=== PATIENT | female | born 1935 | race Caucasian/White ===

== ENCOUNTER 2016-12-31 07:49 | Inpatient (IN) ==
--- NOTE | 2016-12-31 08:04 | EKG Report ---
Stationary ECG Study [facility] ER Test Date: 12/31/2016 7:59:53 AM Pat Name: TAVON MORGAN Department: Room: Gender: F Auto Detailer: : 1935 Requested by: London Staples Order Number: [id number] Reading MD: YARITZA CORDOVA Intervals [place] Rate: 68 P: 52 CT: 181 QRS: 30 QRSD: 83 T: 30 QT: 398 QTc: 416 Interpretive Statements SINUS RHYTHM SEPTAL MYOCARDIAL INFARCTION, OLD Electronically Signed On 12-31-16 11:49:32 CDT by YARITZA CORDOVA [id number]
[2016-12-31] MEDS ORDERED: ASPIRIN 325 MG TABLET PO STA (08:34)
[2016-12-31 08:39] LABS: Basophils # 0.1 10*3/uL (0.0-0.2); Basophils % 0.6 % (0.0-0.8); Eosinophils # 0.3 10*3/uL (0.0-0.87); Eosinophils % 2.6 % (0.00-10.9); Hematocrit 37.1 VOL% (35.7-47.0); Hemoglobin 11.9 GM/DL (12.0-16.0); Immature Granulocytes % 0.6 %; Immature Granulocytes Absolute 0.06 #; Lymphocytes # 1.4 10*3/uL (1.4-4.0); Lymphocytes % 13.2 % (21.3-54.2); Mean Corpuscular HGB Conc 32.1 GM/DL (32-36); Mean Corpuscular Hemoglobin 31 PG (27-34); Mean Corpuscular Volume 96.9 FL (87-102); Mean Platelet Volume 8.8 FL (9.6-12.0); Monocytes # 0.5 10*3/uL (0.11-0.8); Monocytes % 4.8 % (1.7-12.7); Neutrophils # 8.4 10*3/uL (1.4-7.4); Neutrophils % 78.2 % (38.7-73.9); Platelet Count 300 T/CUMM (130-400); Red Blood Count 3.83 MC/CUMM (3.8-5.5); Red Cell Distribution Width 13.4 % (9.3-17.3); White Blood Count 10.8 T/CUMM (4-12)
--- NOTE | 2016-12-31 08:42 | Emergency Department Note ---
Marbella Strickland Hilary, am scribing for, and in the presence of, London Back MD 08: 35. Nazanin Strickland James D, MD, personally performed the services described in this documentation, ascribed by Subha Tyson in my presence, and it is both accurate and complete 841 . Arrival - Arrival Chief Complaint: Chest Pain ED Nursing Triage Note: pt has pain in chest and between shoulder blades. onset last night. chest pain is worse with touching chest Mode of Arrival: Stretcher Limitations: No Limitations Source: Patient, Family (daughter), RN Notes Reviewed - History of Present Illness HPI Narrative: Pt is a 81 y/o white female brought to the ED via EMS with c/o chest pain which onset last night. Pt confirms cough, chest pain and diaphoresis. She states her chest pain hurts from her throat down to her chest and then from her head all the way down her back. Pt has a PMHx of COPD and HTN. No other complaints or problems stated in the ED. Onset (ago): hour(s) Consistency: constant Severity: mild Severity scale (1-10): 1 Quality: sharp Allergies/Adverse Reactions: Allergies Allergy/AdvReac Type Severity Reaction Status Date / Time Penicillins AdvReac Intermediate Anxiety Verified 10/05/14 11:37 steriods AdvReac Intermediate Cramping Uncoded 10/05/14 11:37 of the Muscles Home Medications: Home Medications Medication Instructions Recorded Confirmed Type Doxepin [SINEquan] 50 mg PO BEDTIME 10/05/14 12/31/16 History amLODIPine [Norvasc] 2.5 mg PO DAILY 07/14/15 12/31/16 History Aspirin [Ecotrin] 81 mg PO DAILY #30 07/20/15 12/31/16 Rx clonazePAM [Klonopin] 1 mg PO BID #60 07/20/15 12/31/16 Rx Review of System - Review of System 12 point system: reviewed and no additional remarkable complaints except as stated - Review of System Constitutional: Absent: fever Cardiovascular: Present: chest pain. Absent: edema Medical,Surgical,& Family Hx - Medical History Cardio: History of: Hypertension Respiratory: History of: COPD - Social History Smoking Status: Never smoker Frequency of Alcohol Use: None Type of Drug Use: None Marital Status: Single Lives With:: Alone Functional capacity: independent ambulation Exam Physical Examination: GENERAL: This is a thin white female in no apparent distress. VITAL SIGNS: Temperature: 96.1 Pulse: 75 Respiratory: 18 Blood Pressure: 139 /71 O2Sat: 97 HEENT: Head is normocephalic and atraumatic. Pupils are equally round and reactive to light. Extraocular movement are intact. Oropharynx is benign with moist mucous membranes. NECK: Neck is soft and supple without tenderness. There are no masses. There is no lymphadenopathy. LUNGS: Lungs have rhonchi in all lung olea. Chest rises symmetrically. There is no chest wall tenderness. CV: Heart is regular rate and rhythm without murmurs, rubs, or gallops. ABDOMEN: Abdomen is soft, non-tender to palpation. There are no abnormal masses palpated. There is no organomegaly. Bowel sounds are present and active. SKIN: Skin is warm and dry. No rash. EXTREMITIES: Patient has full range of motion without tenderness. There is no pedal edema. NEUROLOGIC: Awake, alert, and oriented x4. Cranial nerves II through XII are grossly intact. There are no motorsensory deficits. PSYCHIATRIC: Normal affect. Normal mood. Vital Signs: Vital Signs Temperature 96.1 F L 12/31/16 07:55 Pulse Rate 75 12/31/16 07:55 Respiratory Rate 18 12/31/16 08:01 Blood Pressure 139/71 12/31/16 07:55 O2 Sat by Pulse Oximetry 97 12/31/16 07:55 Course Course Narrative: Patient was given aspirin, Lovenox, and Cipro in the emergency department. - Consultations Consultation #1: Discussed with Dr. Goldstein. Patient will be admitted to the cardiology service. Time: 10:33 Results - Labs CBC & BMP: 12/31/16 08:21 12/31/16 08:32 Lab Results: I have reviewed the patients labs Labs: Laboratory Tests 12/31/16 08:21 WBC 10.8 RBC 3.83 Hgb 11.9 L Hct 37.1 Plt Count 300 MPV 8.8 L Neut % (Auto) 78.2 H Lymph % (Auto) 13.2 L Neut # (Auto) 8.4 H Laboratory Tests 12/31/16 08:32 Troponin I 2.600 H Laboratory Tests 12/31/16 08:32 Sodium 143 Potassium 3.7 Chloride 106 Carbon Dioxide 32 CK-MB (CK-2) 10.4 H Troponin I 2.600 H Albumin 3.1 L Globulin 4.0 H Albumin/Globulin Ratio 0.7 L Laboratory Tests 12/31/16 09:14 Lactic Acid 1.2 Laboratory Tests 12/31/16 Unknown B-Natriuretic Peptide 134 H Laboratory Tests 12/31/16 09:14 Urine pH 7.0 Ur Specific [place] 1.005 Urine Urobilinogen < 2.0 H Urine Leukocytes Large H Urine RBC 2 Urine WBC 57 - EKG EKG results: interpreted by ERMD - Impressions EKG: Normal sinus rhythm with a rate of 68, normal ST-T waves, normal axis - Diagnostic Findings Procedure: Chest x-ray: image reviewed by me, report reviewed by me (Increased pulmonary markings bilaterally and a groundglass appearance. No cardiomegaly. Reduced atelectasis/infiltration/edema at the right lung base. Similar progressive findings at the left lung base. Underlying chronic scarring. ) Disposition Clinical Impression: Chest pain, UTI (urinary tract infection), NSTEMI (non-ST elevated myocardial infarction) Case discussed with: patient Disposition: Still a Patient Condition: Stable Time of Disposition: 11:01
[2016-12-31] MEDS ORDERED: ASPIRIN 325 MG TABLET ONE (09:07)
[2016-12-31 09:12] LABS: Alanine Aminotransferase 19 U/L (13-56); Albumin 3.1 G/DL (3.4-5.0); Alkaline Phosphatase 89 U/L (45-117); Aspartate Amino Transferase 29 U/L (0-37); Bilirubin,Total < 0.39 MG/DL (0.2-1.0); Blood Urea Nitrogen 10 MG/DL (7-18); CKMB % 10.6 %; Calcium 8.9 MG/DL (8.5-10.1); Glucose 105 MG/DL (74-106); Magnesium 2.3 MG/DL (1.8-2.4); Potassium 3.7 MMOL/L (3.5-5.1); Sodium 143 MMOL/L (136-145); Total Protein 7.1 G/DL (6.4-8.3)
[2016-12-31] MEDS ORDERED: ENOXAPARIN 60 MG/0.6 ML SYRINGE SUBCUT STA (09:30)
[2016-12-31] MEDS ORDERED: ENOXAPARIN 60 MG/0.6 ML SYRINGE ONE (09:45)
--- NOTE | 2016-12-31 10:00 | XRay Report ---
Portable chest Date: 12/31/2016 Clinical history: Chest pain Comparison: 07/20/2015 Technique: Portable AP sitting chest Findings: The heart is minimally enlarged with calcification in the aortic knob. Chronic scarring in the lungs with decreased parenchymal findings the right lung base with minimally progressive parenchymal findings at the left lung base. Osteopenia with degenerative changes. Stable mediastinum. Impression: Reduced atelectasis/infiltration/edema at the right lung base. Similar progressive findings at the left lung base. Underlying chronic scarring. PROCEDURE INTERPRETED AT [facility] DEPARTMENT OF RADIOLOGY Final Report Signed by: Dr. Shanta Haider
[2016-12-31 10:06] LABS: Apearance,Urine Slightly Hazy (Clear); Bacteria,Urine Occasional /HPF (Few); Bilirubin,Urine Negative (Negative); Blood, Urine Negative (Negative); Glucose,Urine (UA) Negative (Negative); Ketones,Urine Negative (Negative); Nitrite,Urine Negative (Negative); Protein,Urine Negative; RBC,Urine 2 /HPF (0-4); Squamous Epithelial Cell,Urine Occasional /HPF (0-10); Urine Color Yellow (Yellow); Urine Specific Gravity 1.005 (1.001-1.035); Urine Urobilinogen < 2.0 EU/DL (0.2-1.0); WBC,Urine 57 /HPF (0-6)
[2016-12-31] MEDS ORDERED: NITROGLYCERIN 2% OINT 1 INCH/GM PACK TOP STA (10:32)
[2016-12-31] MEDS ORDERED: CIPROFLOXACIN INJ 400 MG in PREMIX 1 EACH IV STA (10:32)
[2016-12-31] MEDS ORDERED: CIPROFLOXACIN 400 MG/200 ML PREMIX IV ONE (10:41)
[2016-12-31] MEDS ORDERED: NITROGLYCERIN 2% OINT 1 INCH/GM PACK TOP ONE (10:41)
[2016-12-31] MEDS ORDERED: ONDANSETRON 4 MG/2 ML VIAL IV PRN (11:57)
[2016-12-31] MEDS ORDERED: ACETAMINOPHEN 325 MG TABLET PO PRN (11:57)
[2016-12-31] MEDS ORDERED: POTASSIUM CHLORIDE 20 MEQ TABLET PO PRN (11:57)
[2016-12-31] MEDS ORDERED: MAGNESIUM HYDROXIDE SUSP 30 ML UDCUP PO PRN (11:57)
[2016-12-31] MEDS ORDERED: MAGNESIUM SULF RIDER 2 GM in PREMIX 1 EACH IV PRN (11:57)
[2016-12-31] MEDS ORDERED: SODIUM CHLORIDE 0.45% 1,000 ML IV SCH (12:00)
--- NOTE | 2016-12-31 12:00 | Cardiology History & Physical ---
Assessment and Plan - Time spent with patient Time spent with patient: Greater than 30 minutes (due to assessment, plan, and documentation) (1) Chest pain Status: Acute Assessment and plan: See plan of care listed below. Current Visit: Yes (2) Hypertension Status: Chronic Assessment and plan: See plan of care listed below. Current Visit: Yes (3) COPD (chronic obstructive pulmonary disease) Status: Chronic Assessment and plan: See plan of care listed below. Current Visit: Yes (4) Abnormal chest x-ray Status: Chronic Assessment and plan: See plan of care listed below. Current Visit: Yes (5) Elevated troponin Status: Acute Assessment and plan: See plan of care listed below. Current Visit: Yes (6) Family history of coronary artery disease Status: Chronic Assessment and plan: See plan of care listed below. Current Visit: Yes (7) UTI (urinary tract infection) Status: Acute Assessment and plan: See plan of care listed below. Current Visit: Yes History of Present Illness Chief complaint: chest pain History of present illness: It Application Development Manager: new to Dr. Goldstein PCP/Patrol Deputy Sheriff: Dr. Anaya Ms. Rojas is being seen in the emergency room, #12. Ms. Rojas is a 81 year old female with a history of COPD, hypertension , osteoporosis, and history of abnormal chest x-ray and abnormal CT scan of the chest. She is followed by Dr. Anaya. She has abnormal CT/CXR results consisting of interstitial scarring in the RML and lingula which have remained stable for years on her routine chest x-ray. Risk factors are significant for: age, sedentary lifestyle, hypertension, and family history of CAD. She is a lifetime nonsmoker. She lives alone with her 2 sons living within 5-10 minutes of her. Ms. Rojas presents to the emergency room this morning with complaints of chest pain that began last night; she is unsure of the time. She is a poor historian. The pain waxed and waned all night before she called her family this morning around 0600. She reports it was midsternal in nature and hurt from her throat down to her upper abdomen and in her back between her shoulder blades. She describes it as being sharp in quality and severe. She can identify no aggravating or alleviating factors. She had associated symptoms of diaphoresis and shortness of breath, noting that she felt as if she couldn't breathe. She denies dizziness, lightheadedness, nausea, vomiting, or palpitations. She has a frequent chronic cough with sputum production that she states has been darker tinged recently. She states she is normally very active in her yard and flower beds but has just not felt well recently and hasn't been outside as much as she usually is although she denies exertional dyspnea or chest discomfort. Upon arrival to our facility, her troponin was 2.6 with CK-MB 10.4 and CPK 98. Her creatinine is 0.9, potassium 3.7, sodium 143, hemoglobin 11.9, hematocrit 37.1, white blood cell count 10.8. She has noted to have a urinary tract infection and has been started on IV Cipro. She also reports that 10-15 years ago, she had an allergic reaction to IVP dye but is unsure what type of reaction she had. EKG is unremarkable and shows sinus rhythm. ASSESSMENT/PLAN: 1. CHEST PAIN - Patient presents with symptoms suspicious for angina and elevated troponin. I have discussed her case with Dr. Goldstein and she will be admitted to cardiology service for further evaluation. She has never had a a heart catheterization in the past. We will hold her NPO in anticipation of probable cath to further define her coronary anatomy. We will continue to cycle cardiac biomarkers and EKGs and follow trend. She has received aspirin, lovenox , and nitroglycerin in the emergency room. We will continue aspirin 81mg po daily. She has a history of chronic lung issues, therefore, we will try to use a more cardioselective beta marta such as bystolic with her. We will obtain an echocardiogram and check lipid panel. We will check D-Dimer to rule out PE. 2. HYPERTENSION - Currently well controlled. Will continue to monitor and adjust accordingly. 3. COPD - Routinely followed by Dr. Anaya. 4. HISTORY OF ABNORMAL CHEST XRAY- Revealed increased pulmonary markings bilaterally and a groundglass appearance. No cardiomegaly. Reduced atelectasis/ infiltration/edema at the right lung base. Similar progressive findings at the left lung base. Underlying chronic scarring. 5. ELEVATED TROPONIN - Currently 2.6. Will continue to cycle cardiac biomarkers and follow trend. 6. FAMILY HISTORY OF CAD - Patient states most everyone on her mom's side of the family has had heart disease. 7. UTI - She is receiving IV antibiotics in the ER. We will continue with PO tomorrow. Home Medications Medication Instructions Recorded Confirmed Type Doxepin [SINEquan] 50 mg PO BEDTIME 10/05/14 07/14/15 History Ibuprofen Tab [Motrin Tab] 400 mg PO TID PRN #21 tablet 10/05/14 07/14/15 Rx amLODIPine [Norvasc] 2.5 mg PO DAILY 07/14/15 07/14/15 History Aspirin [Ecotrin] 81 mg PO DAILY #30 07/20/15 07/14/15 Rx Benzonatate [Tessalon] 100 mg PO TID PRN #30 07/20/15 07/14/15 Rx Clindamycin Cap [Cleocin Cap] 150 mg PO TID #21 07/20/15 07/14/15 Rx Montelukast Tab [Singulair Tab] 10 mg PO DAILY #30 07/20/15 07/14/15 Rx Theophylline Liquid [Elixophyllin] 100 mg PO Q12H #1200 mls 07/20/15 Rx clonazePAM [Klonopin] 1 mg PO BID #60 07/20/15 07/14/15 Rx Allergies Allergy/AdvReac Type Severity Reaction Status Date / Time Penicillins AdvReac Intermediate Anxiety Verified 10/05/14 11:37 steriods AdvReac Intermediate Cramping Uncoded 10/05/14 11:37 of the Muscles Review of systems: - Constitutional: Present: fatigue, As per HPI. Absent: anorexia, chills, daytime sleepiness, excessive sweating, fever(s), frequent falls, headache(s), increased appetite, lethargy, malaise, night sweats, stops breathing during sleep, weakness, weight gain, weight loss. - EENT Eyes: Present: As per HPI. Absent: blurry vision, diplopia, loss of vision Ears: Present: As per HPI. Absent: decreased hearing, ear discharge, ear pain Nose, mouth and throat: Present: As per HPI. Absent: dysphagia, epistaxis, headache(s), hoarseness, lip swelling, nasal congestion, neck mass, neck pain, sinus pressure, sore throat, throat swelling, tongue swelling, vertigo - Cardiovascular: Present: chest pain at rest, dyspnea, diaphoresis, as per HPI. Absent: chest pain with activity, dyspnea on exertion, edema, claudication , radiating jaw, neck or arm pain, lightheadedness, orthopnea, palpitations, PND - Respiratory: Present: dyspnea, cough, as per HPI. Absent: dyspnea on exertion , hemoptysis, wheezing, snoring, pain on inspiration - Gastrointestinal: Present: As per HPI. Absent: abdominal pain, bloating, change in bowel habits, constipation, diarrhea, heartburn, hematemesis, hematochezia, loose stools, melena, nausea, vomiting - Genitourinary: Present: As per HPI. Absent: difficulty urinating, dysuria, flank pain, hematuria, nocturia, urinary frequency, urinary incontinence - Musculoskeletal: Present: back pain, As per HPI. Absent: arthralgias, joint swelling, limited range of motion, muscle cramps, muscle weakness, myalgias - Neurological: Present: As per HPI. Absent: abnormal gait, abnormal speech, behavioral changes, confusion, convulsions, disequilibrium, dizziness, focal weakness, frequent falls, headache(s), memory loss, numbness, paresthesias, radicular pain, syncope, tremor(s) - Psychiatric: Present: As per HPI. Absent: anxiety, confusion, depression, panic attacks - Endocrine: Present: fatigue, As per HPI. Absent: cold intolerance, heat intolerance, polydipsia, polyphagia - Hematologic/Lymphatic: Present: As per HPI. Absent: easy bleeding, easy bruising, lymphadenopathy Medical,Surgical,& Family Hx - Medical History Cardio: History of: Hypertension Psychological: History of: Depression Respiratory: History of: Bronchitis, COPD, Pneumonia, Respiratory Problems ( chronic abnormal CT/CXR) Musculoskeletal: History of: Degenerative Disk Disease - Surgical History Reproductive Surgeries: Surgical HX of;: Hysterectomy - Family History Family History: Reports;: Family Cancer, Family Diabetes, Family Heart Disease - Social History Smoking Status: Former smoker (smoked for approximately 3 years and stopped smoking over 40 years ago.) Frequency of Alcohol Use: None Type of Drug Use: None Marital Status: Lives With:: Alone Functional capacity: independent ambulation Cardiology Physical Exam - Constitutional Vitals: Vital Signs Temp Pulse Resp BP Pulse Ox 96.1 F L 75 18 139/71 97 12/31/16 07:55 12/31/16 07:55 12/31/16 08:01 12/31/16 07:55 12/31/16 07:55 Intake and Output 12/30/16 12/31/16 12/31/16 22:59 06:59 14:59 Other: Weight 130 lb Patient Weight 01/01/17 06:59 Weight 130 lb Exam: General appearance: Pleasant and cooperative. no acute distress. Head exam: Present: normal inspection, normocephalic, atraumatic. Absent: hematoma, laceration Eye exam: Present: EOMI. Absent: conjunctival injection, nystagmus, periorbital swelling, scleral icterus, laceration to eyelids Pupils: Present: PERRL. Absent: constricted, dilated, fixed, irregular, unequal ENT exam: Present: normal exam, normal external ear exam Neck exam: Present: normal inspection. Absent: lymphadenopathy, meningismus, tenderness, thyromegaly Respiratory exam: Present: Coarse breath sounds with end expiratory wheezes noted posteriorly. Absent: accessory muscle use, chest wall tenderness. Cardiovascular exam: Present: regular rate and rhythm. Absent: gallop, JVD, rubs GI/Abdominal exam: Present: normal bowel sounds, soft. Absent: distended, firm , guarding, hernia, mass, tenderness, rebound. Extremities exam: Present: normal inspection, normal capillary refill. Upper extremity pulses 2+. Lower extremity pulses 2+. Absent: calf tenderness, edema Musculoskeletal: Present: No Fluid Collection, No Pain, Normal Range of Motion Back exam: Present: normal inspection. Absent: muscle spasm, vertebral tenderness Neurological exam: Present: alert, oriented X3, grossly intact without resting or essential tremor Psychiatric exam: Present: normal affect, normal mood Skin exam: Present: normal color, warm, dry, intact. Absent: cyanosis, diaphoretic, rash, urticaria Result/EKG - Labs CBC & BMP: 12/31/16 08:21 12/31/16 08:32 Lab Results: I have reviewed the past 24 hour labs Labs: Laboratory Results - last 24 hr 12/31/16 12/31/16 12/31/16 08:21 08:32 09:14 WBC 10.8 RBC 3.83 Hgb 11.9 L Hct 37.1 MCV 96.9 MCH 31 MCHC 32.1 RDW 13.4 Plt Count 300 MPV 8.8 L Neut % (Auto) 78.2 H Lymph % (Auto) 13.2 L [place] % (Auto) 4.8 Eos % (Auto) 2.6 Baso % (Auto) 0.6 Neut # (Auto) 8.4 H Lymph # (Auto) 1.4 [place] # (Auto) 0.5 Eos # (Auto) 0.3 Baso # (Auto) 0.1 Immature Gran % 0.6 Nucleated RBC % 0.0 Immature Gran # 0.06 Nucleated RBCs # 0.00 Immature Plt Fraction 0.0 Sodium 143 Potassium 3.7 Chloride 106 Carbon Dioxide 32 Anion Gap 8.7 BUN 10 Creatinine 0.90 GFR Calculation 56 BUN/Creatinine Ratio 11.00 Glucose 105 Calculated Osmolality 283.0 Lactic Acid Calcium 8.9 Magnesium 2.3 Total Bilirubin < 0.39 AST 29 ALT 19 Alkaline Phosphatase 89 Total Creatine Kinase 98 CK-MB (CK-2) 10.4 H CK and CKMB Interp 10.6 Troponin I 2.600 H B-Natriuretic Peptide Total Protein 7.1 Albumin 3.1 L Globulin 4.0 H Albumin/Globulin Ratio 0.7 L Urine Color Yellow Urine Appearance Slightly hazy Urine pH 7.0 Ur Specific [place] 1.005 Urine Protein Negative Urine Glucose (UA) Negative Urine Ketones Negative Urine Blood Negative Urine Nitrate Negative Urine Bilirubin Negative Urine Urobilinogen < 2.0 H Urine Leukocytes Large H Urine RBC 2 Urine WBC 57 Ur Squamous Epith Cells Occasional Urine Bacteria Occasional Ur Culture Indicated? Results to follow 12/31/16 12/31/16 09:14 Unknown WBC RBC Hgb Hct MCV MCH MCHC RDW Plt Count MPV Neut % (Auto) Lymph % (Auto) [place] % (Auto) Eos % (Auto) Baso % (Auto) Neut # (Auto) Lymph # (Auto) [place] # (Auto) Eos # (Auto) Baso # (Auto) Immature Gran % Nucleated RBC % Immature Gran # Nucleated RBCs # Immature Plt Fraction Sodium Potassium Chloride Carbon Dioxide Anion Gap BUN Creatinine GFR Calculation BUN/Creatinine Ratio Glucose Calculated Osmolality Lactic Acid 1.2 Calcium Magnesium Total Bilirubin AST ALT Alkaline Phosphatase Total Creatine Kinase CK-MB (CK-2) CK and CKMB Interp Troponin I B-Natriuretic Peptide 134 H Total Protein Albumin Globulin Albumin/Globulin Ratio Urine Color Urine Appearance Urine pH Ur Specific Moore Urine Protein Urine Glucose (UA) Urine Ketones Urine Blood Urine Nitrate Urine Bilirubin Urine Urobilinogen Urine Leukocytes Urine RBC Urine WBC Ur Squamous Epith Cells Urine Bacteria Ur Culture Indicated? - EKG EKG results: interpreted by me, sinus rhythm
--- NOTE | 2016-12-31 12:25 | EKG Report ---
Stationary ECG Study [facility] ER Test Date: 12/31/2016 12:21:40 PM Pat Name: TAVON MORGAN Department: Room: 288 Gender: F Chief Counsel: : 1935 Requested by: London Staples Order Number: [id number] Reading MD: INEZ IQBAL Intervals [place] Rate: 70 P: 53 [place]: 183 QRS: 29 QRSD: 83 T: 35 QT: 394 QTc: 416 Interpretive Statements SINUS RHYTHM ANTEROSEPTAL MYOCARDIAL INFARCTION, OLD Electronically Signed On 12-31-16 13:48:43 CDT by INEZ IQBAL [id number]
[2016-12-31 13:05] LABS: CKMB % 16.5 %
[2016-12-31 13:06] LABS: Troponin I Only 14.5 NG/ML (0.00-0.045)
[2016-12-31] MEDS ORDERED: MORPHINE 2 MG/1 ML SYRINGE IV STA (13:10)
[2016-12-31] MEDS ORDERED: diphenhydrAMINE 50 MG/1 ML VIAL IV STA (13:10)
[2016-12-31] MEDS ORDERED: ONDANSETRON 4 MG/2 ML VIAL IV STA (13:10)
[2016-12-31] MEDS ORDERED: methylPREDNISolone SOD SUC 125 MG/2 ML VIAL IV STA (13:10)
[2016-12-31] MEDS ORDERED: diphenhydrAMINE 50 MG/1 ML VIAL ONE (13:13)
[2016-12-31] MEDS ORDERED: methylPREDNISolone SOD SUC 125 MG/2 ML VIAL ONE (13:13)
[2016-12-31] MEDS ORDERED: MORPHINE 2 MG/1 ML SYRINGE ONE (13:32)
[2016-12-31] MEDS ORDERED: ONDANSETRON 4 MG/2 ML VIAL ONE (13:32)
[2016-12-31] MEDS ORDERED: PANTOPRAZOLE 40 MG TABLET PO ONE (14:32)
[2016-12-31] MEDS: PANTOPRAZOLE 40 MG TABLET PO SCH (14:35)
[2016-12-31] MEDS ORDERED: HYDROmorphone 2 MG/1 ML VIAL ONE (15:07)
[2016-12-31] MEDS ORDERED: MIDAZOLAM 2 MG/2 ML VIAL ONE (15:07)
--- NOTE | 2016-12-31 15:27 | History and Physical Update ---
Sedation H&P Update - History and Physical H&P was reviewed, the patient examined and there: are no changes in the patients condition since last H&P was completed. - Physical Exam Mental Status: alert and oriented Heart: regular rate and rhythm Lung: clear to auscultation Abdomen: within normal limits Vitals: within normal limits - Sedation Plan for Sedation: moderate Patient Consent: Procedure disscussed with patient and patinet has consented., Risks and benefits were discussed with patient,including infection,, bleeding, injury to surrounding structures, seizure, temporary nerve, Patient understands and accepts potential risks/benefits and agrees to, proceed. ASA Class: III Airway Assessment: Class II: Soft palate, uvula, fauces visible
[2016-12-31] MEDS ORDERED: BIVALIRUDIN 250 MG VIAL IV ONE (16:07)
[2016-12-31] MEDS ORDERED: TICAGRELOR 90 MG TABLET ONE (16:45)
--- NOTE | 2016-12-31 17:24 | Cardiac Catheterization ---
Date of Procedure:: 12/31/16 Pre-op Diagnosis: Chest pain non-Q-wave IN Post-op diagnosis: same Procedure: Cardiac catheterization procedure note #1 left heart catheterization #2 selective coronary angiography #3 left ventriculography #4 successful OM1 stent #5 successful proximal LAD stent Devikaipaque was used for the procedure Description of procedure The patient had a non-Q-wave infarction with troponin level 14 and chest pain and nausea. Following sterile preparation draping of the right groin, local anesthesia was achieved by infiltration with 1% Xylocaine. Using a Cook needle the right femoral artery was cannulated and a #6 sheath was inserted. A 6 Salvadorean pigtail catheter was introduced and advanced retrograde across aortic valve into the left pedicle and the end-diastolic pressure was recorded. Left ventriculography was performed the CERVANTES projection using 24 cc of contrast. A pullback recording was made across aortic valve. The pigtail catheter change for a 6 Salvadorean left Luis catheter and left coronary angiography was performed in several CERVANTES and IVORIAN projections. The catheter was exchanged for a 6 Salvadorean right Amplatz catheter and right coronary angiography was performed in the IVORIAN projection only. The catheter change for a 6 Salvadorean left Luis 3.5 cm guiding catheter in the left main was recannulated. The patient was bolused with Angiomax and placed on infusion per protocol. A pro-water flex wire was used and carefully advanced the first OM branch into the distal vessel. Direct stenting was performed using a 2.5 x 8 mm Synergy drug eluting stent. The maximum inflation pressure was at 13 brandan for 30 seconds, creating a 2.80 mm lumen. Good result obtained. The wire was then redirected into the distal LAD and direct stenting was performed using a 2.75 x 12 mm Synergy drug-eluting stent. The maximum inflation pressure was at 13 brandan for 30 seconds, creating a 3.0 mm Lumen. The balloon was then withdrawn back to the guiding catheter leaving only the guidewire across the lesion. Repeat angiography again confirmed a widely patent vessel with mild to narrowing, no side branch occlusion and brisk runoff. The guiding catheter and sheath were then removed and the femoral arch Lima site was sealed percutaneously minx closure device with prompt cessation of bleeding and prompt return of femoral and foot pulses. The patient transferred back to telemetry in stable condition. Hemodynamic data Aortic pressure 133/67 mean of 102 left ventricle 133/20 Selective coronary angiography The left main trunk is patent and bifurcates. The LAD is a moderate-sized vessel that is tortuous and has a 80% proximal stenosis after the first septal and diagonal branch. Diagonal branch is patent. The circumflex system is tortuous and has a 90% proximal OM1 stenosis with clot. The dominant coronary artery remains patent with mild irregularities only. No right to left collaterals. Left ventriculography The ejection fraction is 30% with severe anteroapical and inferoapical hypokinesis. The basal segments are hyperdynamic. No evidence for mitral regurgitation under the conditions of the study. Conclusions #1 increased LVEDP 20 #2 ejection fraction 30% with severe anteroapical and inferoapical hypokinesis #3 no mitral regurgitation #4 no aortic valve gradient #5 left main trunk-patent #6 LAD 80% proximal after first septal and diagonal branch #7 diagonal branch-mild disease #8 circumflex system-tortuous with 90% proximal OM1 with clot #9 dominant right coronary-mild luminal irregularities only. No right to left collaterals demonstrated #10 successful stent OM1. A 90% stenosis was reduced to mild irregularities using a 2.5 x 8 mm synergy drug-eluting stent, postdilated to 13 brandan creating a 2.80 mm lumen. #11 successful proximal LAD stent. A 80% stenosis was reduced to mild irregularities using a 2.75 x 12 mm Synergy drug-coated stent, postdilated to 13 brandan for 30 seconds, creating a 3.0 mm lumen. Good angiographic results obtained. Disposition The patient presented with a non-Q-wave infarction involving a hazy obtuse marginal branch which was stented with a 2.5 x 8 mm Synergy drug-coated stent, postdilated 2.80 mm lumen. BETY grade III flow restored. The proximal LAD was also stented with a 2.75 x 12 mm Synergy drug eluting stent, postdilated 3.0 mm lumen. Good result obtained. She does have significant LV dysfunction in the setting of acute infarction with ejection fraction of 30%. Hopefully, some of this represents stunned myocardium and will improve on serial echo follow-up. She will continue aspirin Brilinta and statin therapy and a CPK troponin BMP CBC in a.m. has been ordered. Cine pictures were reviewed with the patient's son and [id number]. Implants: Successful stent OM1 2.5 x 8 Synergy drug-coated stent postdilated 2.80. Successful proximal LAD stent 2.75 x 12 mm synergy drug-eluting stent postdilated 3.0 mm. Good result obtained. Anesthesia: moderate conscious sedation Surgeon / Physician: Dalton Tadeo Estimated blood loss: minimal Specimens: none sent Condition: stable Disposition: floor - Medications / Follow-up
[2016-12-31] MEDS: clonazePAM 0.5 MG TABLET PO SCH ×2 (18:28→21:43)
[2016-12-31 18:42] LABS: CKMB % 16.8 %
[2016-12-31 18:45] LABS: Troponin I Only 14.2 NG/ML (0.00-0.045)
--- NOTE | 2016-12-31 19:36 | ECHO Report ---
Ya Rojas Exam Date: 12/31/2016 09:33 Referring Physician: Technologist: Mar Bishop RDCS Age: 81 Ht (in): 64 Wt (lb): 130 Gender: F Exam Location: [facility] Echo Indications: Shortness of breath, Cough, Chest pain, unspecified, Essential (primary) hypertension, COPD, Elevated troponin BP: 131 / 70 HR: 68 Rhythm: Sinus Technical Quality: Fair IMPRESSIONS Severe anteroapical and inferoapical hypokinesis.EF 30% The right ventricle is normal in size and function. The right atrium is mildly enlarged. Moderately increased left atrial size. Mildly thickened mitral valve. Trace mitral valve regurgitation. Aortic valve sclerosis. Trace aortic valve regurgitation. Severe tricuspid valve regurgitation. PAP 60 mmHG. Mild pulmonary valve regurgitation. Normal pericardium without effusion. Normal ascending aorta dimension. Grade II/IV diastolic dysfunction, moderately elevated filling pressures. MEASUREMENTS (Male / Female) Normal Values 2D ECHO LV Diastolic Diameter PLAX 4.4 cm 4.2 - 5.9 / 3.9 - 5.3 cm LV Systolic Diameter PLAX 2.7 cm LV Fractional Shortening PLAX 38.5 % IVS Diastolic Thickness 0.7 cm 0.6 - 1.0 / 0.6 - 0.9 cm LVPW Diastolic Thickness 0.7 cm 0.6 - 1.0 / 0.6 - 0.9 cm RV Internal Dim ED PLAX 2.3 cm Aortic Root Diameter 3.2 cm LA Systolic Diameter LX 3.3 cm 3.0 - 4.0 / 2.7 - 3.8 cm DOPPLER TR Peak Velocity 347.0 cm/s TR Peak Gradient 48.2 mmHg FINDINGS Left Ventricle .Severe anteroapical and inferoapical hypokinesis. EF 30 %. Grade II/IV diastolic dysfunction, moderately elevated filling pressures. Right Ventricle The right ventricle is normal in size and function. Right Atrium The right atrium is mildly enlarged. Left Atrium Moderately increased left atrial size. Mitral Valve Mildly thickened mitral valve. Trace mitral valve regurgitation. . Aortic Valve Aortic valve sclerosis. Trace aortic valve regurgitation. Tricuspid Valve Morphologically normal tricuspid valve. Severe tricuspid valve regurgitation. PAP 60 mmHG. Pulmonic Valve Morphologically normal pulmonic valve. Mild pulmonary valve regurgitation. Pericardium Normal pericardium without effusion. Aorta Normal ascending aorta dimension. Hima Tadeo (Electronically Signed) Final Date: 31 December 2016 19:35
[2016-12-31] MEDS ORDERED: clonazePAM 0.5 MG TABLET PO SCH (21:00)
[2016-12-31] MEDS: DOXEPIN 25 MG CAPSULE PO SCH (21:42)
[2016-12-31] MEDS: ATORVASTATIN 40 MG TABLET PO SCH (21:43)
[2016-12-31] MEDS: TICAGRELOR 90 MG TABLET PO SCH (21:43)
[2016-12-31 22:08] LABS: CKMB % 15.8 %
[2016-12-31 22:13] LABS: Troponin I Only 11.5 NG/ML (0.00-0.045)
[2016-12-31] MEDS: BISACODYL 5 MG TABLET PO PRN (23:58)
[2017-01-01 05:10] LABS: Basophils % 0.1 % (0.0-0.8); Hematocrit 33.6 VOL% (35.7-47.0); Hemoglobin 10.9 GM/DL (12.0-16.0); Immature Granulocytes % 0.5 %; Immature Granulocytes Absolute 0.07 #; Lymphocytes # 0.9 10*3/uL (1.4-4.0); Lymphocytes % 6.5 % (21.3-54.2); Mean Corpuscular HGB Conc 32.4 GM/DL (32-36); Mean Corpuscular Hemoglobin 31 PG (27-34); Mean Corpuscular Volume 96.6 FL (87-102); Mean Platelet Volume 9.2 FL (9.6-12.0); Monocytes # 0.7 10*3/uL (0.11-0.8); Monocytes % 5.1 % (1.7-12.7); Neutrophils # 11.7 10*3/uL (1.4-7.4); Neutrophils % 87.8 % (38.7-73.9); Platelet Count 314 T/CUMM (130-400); Red Blood Count 3.48 MC/CUMM (3.8-5.5); Red Cell Distribution Width 13.4 % (9.3-17.3); White Blood Count 13.4 T/CUMM (4-12)
[2017-01-01 05:46] LABS: Calcium 8.8 MG/DL (8.5-10.1); Osmolality,Calculated 274.7 MOS/KG (273-304); Potassium 4.7 MMOL/L (3.5-5.1)
[2017-01-01 05:48] LABS: CKMB % 17.4 %; Troponin I Only 9.22 NG/ML (0.00-0.045)
[2017-01-01 06:21] LABS: Magnesium 2.1 MG/DL (1.8-2.4); Risk Ratio 3.27; VLDL CHOLESTEROL 11.8 MG/DL
--- NOTE | 2017-01-01 07:15 | EKG Report ---
Stationary ECG Study [facility] Test Date: 01/01/2017 7:16:24 AM Pat Name: TAVON MORGAN Department: Room: 288 Gender: F Associate Embalmer/Funeral Director: JEFF : 1935 Requested by: Inez Tadeo Order Number: [id number] Reading MD: INEZ TADEO Intervals [place] Rate: 75 P: 63 OR: 187 QRS: 42 QRSD: 78 T: 23 QT: 396 QTc: 424 Interpretive Statements SINUS RHYTHM Electronically Signed On 01-01-17 14:06:43 CDT by INEZ TADEO [email or web address]
[2017-01-01] MEDS: clonazePAM 0.5 MG TABLET PO SCH ×2 (09:43→21:08)
[2017-01-01] MEDS: CIPROFLOXACIN 500 MG TABLET PO SCH ×2 (09:43→21:08)
[2017-01-01] MEDS: PANTOPRAZOLE 40 MG TABLET PO SCH (09:43)
[2017-01-01] MEDS: ASPIRIN EC 81 MG TABLET PO SCH (09:43)
[2017-01-01] MEDS: NEBIVOLOL 5 MG TABLET PO SCH (09:43)
[2017-01-01] MEDS: TICAGRELOR 90 MG TABLET PO SCH ×2 (09:43→21:08)
--- NOTE | 2017-01-01 12:28 | Cardiology Progress Note ---
Addendum entered and electronically signed by Ama Monroy NP 01/01/17 14:49 : Ms. Rojas was noted to sound a little wet upon exam earlier today. We checked her BNP and it went from 134 to 1115. We'll give her a one time dose of 40mg IV Lasix. Her IV fluids have been discontinued and creatinine is stable. Will further discuss with Dr. Goldstein and await additional recommendations. Original Note: Assessment and Plan - Time spent with patient Time spent with patient: Less than 30 minutes (1) NSTEMI (non-ST elevated myocardial infarction) Status: Acute Assessment and plan: See plan of care listed below. Current Visit: Yes (2) Hypertension Status: Chronic Assessment and plan: See plan of care listed below. Current Visit: Yes (3) COPD (chronic obstructive pulmonary disease) Status: Chronic Assessment and plan: See plan of care listed below. Current Visit: Yes (4) Abnormal chest x-ray Status: Chronic Assessment and plan: See plan of care listed below. Current Visit: Yes (5) Elevated troponin Status: Acute Assessment and plan: See plan of care listed below. Current Visit: Yes (6) Family history of coronary artery disease Status: Chronic Assessment and plan: See plan of care listed below. Current Visit: Yes (7) UTI (urinary tract infection) Status: Acute Assessment and plan: See plan of care listed below. Current Visit: Yes (8) Ischemic cardiomyopathy Status: Acute Assessment and plan: See plan of care listed below. Current Visit: Yes Cardiology - PN: Subj Interval history: Passenger Car Inspector: new to Dr. Goldstein PCP/Manager Regional Sales: Dr. Anaya SUMMARY: Ms. Rojas is a 81 year old female with a history of COPD, hypertension, osteoporosis, and history of abnormal chest x-ray and abnormal CT scan of the chest who presented with complaints of chest pain that began the night before admission with associated symptoms of diaphoresis, dyspnea, and nausea. Her troponin jennifer to 14.5 with CK-MB 46.4, and CPK 276. D-Dimer was negative. She had no acute EKG changes. She underwent left heart catheterization with Dr. Tadeo for non-Q-wave MD and receivd a successful OM1 stent and successful proximal LAD stent. She was transferred to telemetry for overnight monitoring. Echocardiogram revealed EF 30% with trace MR, trace AI, severe TR, moderate to severe pulmonary hypertension, grade II/IV diastolic dysfunction. She has been started on DAPT with aspirin and brilinta, statin, beta marta, and THERESA inhibitor. She was also found to have a UTI upon admission and has been started on oral antibiotics. Urine culture resulted gram positive cocci, sensitivity pending. Blood cultures were negative. JANUARY 01, 2017 UPDATE: Ms. Rojas is doing well today. She did have some discomfort through the night and this morning. EKG repeated and showed no acute changes from post cath EKG. Her troponin is trending down. She remains fairly weak and has not been out of the bed just yet. Physical therapy has been consulted to see her. She lives alone but has family nearby. It's possible she may require swingbed following discharge, or at the very least, home health. Our social secretary is assisting. The patient's right groin dressing was removed. She has some mild tenderness to palpation at site and mild ecchymosis lateral to puncture site. There is no bleeding, hematoma, or bruit at site. Distal pulses are present and palpable bilaterally. She continues to have coarse and abnormal breath sounds and has chronic lung issues. I've started breathing treatments PRN. Once she is discharged, she would benefit from a follow up appointment with her child care aide. ASSESSMENT/PLAN: 1. NSTEMI- Patient presents with symptoms suspicious for angina and elevated troponin. She was taken to the distillery laborer where she underwent stent placement to the OM1 and proximal LAD. Echocardigoram revealed EF 30%. We are continuing with DAPT with aspirin and brilinta, statin, beta marta, and THERESA inhibitor. She has a history of chronic lung issues, therefore, we have started her on a more cardioselective beta marta such as bystolic. Cardiac rehab has seen her. Case management was also consulted for discharge planning. 2. HYPERTENSION - Currently well controlled. Will continue to monitor and adjust accordingly. 3. COPD - Routinely followed by Dr. Anaya. 4. HISTORY OF ABNORMAL CHEST XRAY- Revealed increased pulmonary markings bilaterally and a groundglass appearance. No cardiomegaly. Reduced atelectasis/ infiltration/edema at the right lung base. Similar progressive findings at the left lung base. Underlying chronic scarring. 5. ELEVATED TROPONIN - Peaked at 14.5 with CK-MB CK-MB 46.4, and CPK 276. Troponin is now trending down appropriately. 6. FAMILY HISTORY OF CAD - Patient states most everyone on her mom's side of the family has had heart disease. 7. UTI - She is receiving IV antibiotics in the ER. We will continue with PO and await sensitivity results. Her WBC is elevated today but she has been afebrile. We will continue to monitor. 8. ISCHEMIC CARDIOMYOPATHY - With EF 30%. She has been started on appropriate medications. She will need to follow up with Dr. Goldstein in 1-2 weeks for groin check, and will then need repeat echocardiogram in 3 months to reassess cardiac function. Exam (Progress Note) - Constitutional Vitals: Period Temp Pulse Resp BP Sys/Rebollar Pulse Ox Last 24 Hr 96.6 F-98.2 F 64-99 16-20 104-126/57-74 96-100 Exam: General appearance: Pleasant and cooperative. no acute distress. Head exam: Present: normal inspection, normocephalic, atraumatic. Absent: hematoma, laceration Eye exam: Present: EOMI. Absent: conjunctival injection, nystagmus, periorbital swelling, scleral icterus, laceration to eyelids Pupils: Present: PERRL. Absent: constricted, dilated, fixed, irregular, unequal ENT exam: Present: normal exam, normal external ear exam Neck exam: Present: normal inspection. Absent: lymphadenopathy, meningismus, tenderness, thyromegaly Respiratory exam: Present: Coarse breath sounds with end expiratory wheezes noted posteriorly. Absent: accessory muscle use, chest wall tenderness. Cardiovascular exam: Present: regular rate and rhythm. Absent: gallop, JVD, rubs GI/Abdominal exam: Present: normal bowel sounds, soft. Absent: distended, firm , guarding, hernia, mass, tenderness, rebound. Extremities exam: Present: normal inspection, normal capillary refill. Upper extremity pulses 2+. Lower extremity pulses 2+. Absent: calf tenderness, edema Musculoskeletal: Present: No Fluid Collection, No Pain, Normal Range of Motion Back exam: Present: normal inspection. Absent: muscle spasm, vertebral tenderness Neurological exam: Present: alert, oriented X3, grossly intact without resting or essential tremor Psychiatric exam: Present: normal affect, normal mood Skin exam: Present: normal color, warm, dry, intact. Absent: cyanosis, diaphoretic, rash, urticaria Result/EKG - Labs CBC & BMP: 01/01/17 03:57 01/01/17 03:57 Lab Results: I have reviewed the past 24 hour labs Labs: Laboratory Results - last 24 hr 12/31/16 12/31/16 12/31/16 12:17 12:18 17:52 WBC RBC Hgb Hct MCV MCH MCHC RDW Plt Count MPV Neut % (Auto) Lymph % (Auto) [place] % (Auto) Eos % (Auto) Baso % (Auto) Neut # (Auto) Lymph # (Auto) [place] # (Auto) Eos # (Auto) Baso # (Auto) Immature Gran % Nucleated RBC % Immature Gran # Nucleated RBCs # Immature Plt Fraction D-Dimer, Quantitative <= 0.5 Sodium Potassium Chloride Carbon Dioxide Anion Gap BUN Creatinine GFR Calculation BUN/Creatinine Ratio Glucose Calculated Osmolality Calcium Magnesium Total Creatine Kinase 267 H D 276 H CK-MB (CK-2) 44.0 H D 46.4 H CK and CKMB Interp 16.5 16.8 Troponin I 14.500 H D 14.200 H Triglycerides Cholesterol LDL Cholesterol VLDL Cholesterol HDL Cholesterol Heart Disease Risk Ratio 12/31/16 01/01/17 01/01/17 21:10 03:56 03:57 WBC 13.4 H RBC 3.48 L Hgb 10.9 L Hct 33.6 L MCV 96.6 MCH 31 MCHC 32.4 RDW 13.4 Plt Count 314 MPV 9.2 L Neut % (Auto) 87.8 H Lymph % (Auto) 6.5 L [place] % (Auto) 5.1 Eos % (Auto) 0.0 Baso % (Auto) 0.1 Neut # (Auto) 11.7 H Lymph # (Auto) 0.9 L [place] # (Auto) 0.7 Eos # (Auto) 0.0 Baso # (Auto) 0.0 Immature Gran % 0.5 Nucleated RBC % 0.0 Immature Gran # 0.07 Nucleated RBCs # 0.00 Immature Plt Fraction 0.0 D-Dimer, Quantitative Sodium Potassium Chloride Carbon Dioxide Anion Gap BUN Creatinine GFR Calculation BUN/Creatinine Ratio Glucose Calculated Osmolality Calcium Magnesium 2.1 Total Creatine Kinase 269 H CK-MB (CK-2) 42.5 H CK and CKMB Interp 15.8 Troponin I 11.500 H Triglycerides 59 Cholesterol 203 H LDL Cholesterol 124.0 VLDL Cholesterol 11.8 HDL Cholesterol 62 H Heart Disease Risk Ratio 3.27 01/01/17 01/01/17 03:57 03:57 WBC RBC Hgb Hct MCV MCH MCHC RDW Plt Count MPV Neut % (Auto) Lymph % (Auto) [place] % (Auto) Eos % (Auto) Baso % (Auto) Neut # (Auto) Lymph # (Auto) [place] # (Auto) Eos # (Auto) Baso # (Auto) Immature Gran % Nucleated RBC % Immature Gran # Nucleated RBCs # Immature Plt Fraction D-Dimer, Quantitative Sodium 138 Potassium 4.7 Chloride 103 Carbon Dioxide 28 Anion Gap 11.7 BUN 8 Creatinine 0.80 GFR Calculation 61 BUN/Creatinine Ratio 10.00 Glucose 129 H Calculated Osmolality 274.7 Calcium 8.8 Magnesium Total Creatine Kinase 256 H CK-MB (CK-2) 44.6 H CK and CKMB Interp 17.4 Troponin I 9.220 H Triglycerides Cholesterol LDL Cholesterol VLDL Cholesterol HDL Cholesterol Heart Disease Risk Ratio - EKG EKG results: interpreted by me, sinus rhythm Specialty Discharge - Follow Up or Referrals
[2017-01-01] MEDS ORDERED: ALBUTEROL/IPRATROPIUM 3 ML NEB RESP TX PRN (12:29)
[2017-01-01] MEDS ORDERED: FUROSEMIDE 40 MG/4 ML VIAL IV ONE (14:49)
[2017-01-01] MEDS: LISINOPRIL 2.5 MG TABLET PO SCH (15:48)
[2017-01-01] MEDS: ATORVASTATIN 40 MG TABLET PO SCH (21:08)
[2017-01-01] MEDS: DOXEPIN 25 MG CAPSULE PO SCH (21:08)
[2017-01-01] MEDS ORDERED: diphenhydrAMINE CAP 50 MG CAPSULE PO PRN (22:10)
[2017-01-01] MEDS ORDERED: SODIUM CHLORIDE 0.9% 200 ML IV ONE (22:49)
[2017-01-02] MEDS: SODIUM CHLORIDE 0.9% 1,000 ML IV SCH ×3 (01:14→19:35)
[2017-01-02 05:37] LABS: Basophils % 0.2 % (0.0-0.8); Eosinophils # 0.3 10*3/uL (0.0-0.87); Eosinophils % 2.5 % (0.00-10.9); Hematocrit 30.4 VOL% (35.7-47.0); Hemoglobin 9.6 GM/DL (12.0-16.0); Immature Granulocytes % 0.5 %; Immature Granulocytes Absolute 0.05 #; Lymphocytes % 18.7 % (21.3-54.2); Mean Corpuscular HGB Conc 31.6 GM/DL (32-36); Mean Corpuscular Hemoglobin 32 PG (27-34); Mean Corpuscular Volume 99.7 FL (87-102); Monocytes # 0.8 10*3/uL (0.11-0.8); Monocytes % 7.7 % (1.7-12.7); Neutrophils # 7.6 10*3/uL (1.4-7.4); Neutrophils % 70.4 % (38.7-73.9); Platelet Count 261 T/CUMM (130-400); Red Blood Count 3.05 MC/CUMM (3.8-5.5); Red Cell Distribution Width 13.5 % (9.3-17.3); White Blood Count 10.9 T/CUMM (4-12)
[2017-01-02 06:11] LABS: Calcium 8.2 MG/DL (8.5-10.1); Magnesium 1.9 MG/DL (1.8-2.4); Osmolality,Calculated 280.1 MOS/KG (273-304); Potassium 4.6 MMOL/L (3.5-5.1)
--- NOTE | 2017-01-02 06:21 | EKG Report ---
Stationary ECG Study [facility] Test Date: 01/01/2017 9:43:26 PM Pat Name: TAVON MORGAN Department: Room: 288 Gender: F Tank House Operator: Qasim : 1935 Requested by: Juan Cottrell Order Number: [id number] Reading MD: INEZ IQBAL Intervals [place] Rate: 76 P: 63 AK: 164 QRS: 55 QRSD: 93 T: 43 QT: 448 QTc: 479 Interpretive Statements SINUS RHYTHM T WAVE ABNORMALITY Electronically Signed On 01-02-17 16:43:16 CDT by INEZ IQBAL [email or web address]
[2017-01-02] MEDS ORDERED: FUROSEMIDE 40 MG/4 ML VIAL IV ONE (07:40)
--- NOTE | 2017-01-02 08:25 | Cardiology Progress Note ---
Assessment and Plan - Time spent with patient Time spent with patient: Less than 30 minutes (1) NSTEMI (non-ST elevated myocardial infarction) Status: Acute Assessment and plan: See plan of care listed below. Current Visit: Yes (2) Hypertension Status: Chronic Assessment and plan: See plan of care listed below. Current Visit: Yes (3) COPD (chronic obstructive pulmonary disease) Status: Chronic Assessment and plan: See plan of care listed below. Current Visit: Yes (4) Abnormal chest x-ray Status: Chronic Assessment and plan: See plan of care listed below. Current Visit: Yes (5) Elevated troponin Status: Acute Assessment and plan: See plan of care listed below. Current Visit: Yes (6) Family history of coronary artery disease Status: Chronic Assessment and plan: See plan of care listed below. Current Visit: Yes (7) UTI (urinary tract infection) Status: Acute Assessment and plan: See plan of care listed below. Current Visit: Yes (8) Ischemic cardiomyopathy Status: Acute Assessment and plan: See plan of care listed below. Current Visit: Yes (9) Retroperitoneal hematoma Status: Acute Assessment and plan: See plan of care listed below. Current Visit: Yes (10) Congestive heart failure Status: Acute Assessment and plan: See plan of care listed below. Current Visit: No Qualifiers: Congestive heart failure type: systolic Congestive heart failure chronicity : acute Qualified Code(s): I50.21 - Acute systolic (congestive) heart failure Cardiology - PN: Subj Interval history: Drug Clerk: new to Dr. Goldstein PCP/Change Room Attendant: Dr. Anaya SUMMARY: Ms. Rojas is a 81 year old female with a history of COPD, hypertension, osteoporosis, and history of abnormal chest x-ray and abnormal CT scan of the chest who presented with complaints of chest pain that began the night before admission with associated symptoms of diaphoresis, dyspnea, and nausea. Her troponin jennifer to 14.5 with CK-MB 46.4, and CPK 276. D-Dimer was negative. She had no acute EKG changes. She underwent left heart catheterization with Dr. Tadeo for non-Q-wave TX and receivd a successful OM1 stent and successful proximal LAD stent. She was transferred to telemetry for overnight monitoring. Echocardiogram revealed EF 30% with trace MR, trace AI, severe TR, moderate to severe pulmonary hypertension, grade II/IV diastolic dysfunction. She has been started on DAPT with aspirin and brilinta, statin, beta marta, and GILBERTO inhibitor. She was also found to have a UTI upon admission and has been started on oral antibiotics. Urine culture resulted gram positive cocci, sensitivity pending. Blood cultures were negative. JANUARY 02, 2017 UPDATE: This morning, I received notice that Ms. Rojas had a difficult night. Apparently, she developed a hematoma and hypotension through the night. She required fluid bolus to improve her pressure and subsequently became slightly overloaded and required IV Lasix. She underwent pelvic CT this morning and was found to have a modest hematoma at her right groin cath site with a minimal amount of retroperitoneal extension. Dr. Lake with vascular surgery was consulted to see her. Blood pressure is now improved. H&H has slightly diminished but is stable. We will continue to cycle serial H&H's to monitor. She has some considerable soreness at her right groin but there is no palpable hematoma and no bruit present. She does have some eccymosis at the right groin. She spent a good deal of time in Trendelenburg position last night and is complaining of some back pain and pain under her ribs this morning. Her EKG was repeated and it has been unchanged. We'll give her a GI cocktail to see if that helps her discomfort, but now that she is in a sitting position, she reports she already feels better. She did have a slight elevation in her troponin yesterday, but this is now trending down once again. We are holding her blood pressure medications this morning and will continue close observation. ASSESSMENT/PLAN: 1. NSTEMI- Patient presents with symptoms suspicious for angina and elevated troponin. She was taken to the landscape laborer where she underwent stent placement to the OM1 and proximal LAD. Echocardigoram revealed EF 30%. We are continuing with DAPT with aspirin and brilinta, statin, beta marta, and GILBERTO inhibitor. She has a history of chronic lung issues, therefore, we have started her on a more cardioselective beta marta with bystolic. Cardiac rehab has seen her. Case management was also consulted for discharge planning. 2. HYPERTENSION - Currently well controlled. Will continue to monitor and adjust accordingly. 3. COPD - Routinely followed by Dr. Anaya. She continues to have coarse and abnormal breath sounds and has chronic lung issues. She has been started on breathing treatments PRN. Once she is discharged, she would benefit from a follow up appointment with her dictaphone technician. 4. HISTORY OF ABNORMAL CHEST XRAY- Revealed increased pulmonary markings bilaterally and a groundglass appearance. No cardiomegaly. Reduced atelectasis/ infiltration/edema at the right lung base. Similar progressive findings at the left lung base. Underlying chronic scarring. 5. ELEVATED TROPONIN - Peaked at 14.5 with CK-MB CK-MB 46.4, and CPK 276. Troponin is now trending down appropriately. 6. FAMILY HISTORY OF CAD - Patient states most everyone on her mom's side of the family has had heart disease. 7. UTI - She is receiving IV antibiotics in the ER. She was transitioned to PO Cipro. Urine culture sensitivity report returned sensitive to Cipro. We will continue with current therapy and continue to monitor. 8. ISCHEMIC CARDIOMYOPATHY - With EF 30%. She has been started on appropriate medications. She will need to follow up with Dr. Goldstein in 1-2 weeks for groin check, and will then need repeat echocardiogram in 3 months to reassess cardiac function. 9. RETROPERITONEAL HEMATOMA- Dr. Lake has been consulted and will follow with us. Will continue to monitor H&H. 10. SYSTOLIC CHF - Continue to monitor fluid status. Since admission, she has required IV Lasix for fluid overload on 2 occasions. She has been started on ASA , Brilinta, beta marta, Gilberto inhibitor, and statin. Will continue to monitor. Exam (Progress Note) - Constitutional Vitals: Period Temp Pulse Resp BP Sys/Rebollar Pulse Ox Last 24 Hr 96.6 F-97.8 F 63-73 16-20 74-101/40-64 95-100 Exam: General appearance: Pleasant and cooperative. no acute distress. Head exam: Present: normal inspection, normocephalic, atraumatic. Absent: hematoma, laceration Eye exam: Present: EOMI. Absent: conjunctival injection, nystagmus, periorbital swelling, scleral icterus, laceration to eyelids Pupils: Present: PERRL. Absent: constricted, dilated, fixed, irregular, unequal ENT exam: Present: normal exam, normal external ear exam Neck exam: Present: normal inspection. Absent: lymphadenopathy, meningismus, tenderness, thyromegaly Respiratory exam: Present: Coarse breath sounds with end expiratory wheezes noted posteriorly. Absent: accessory muscle use, chest wall tenderness. Cardiovascular exam: Present: regular rate and rhythm. Absent: gallop, JVD, rubs GI/Abdominal exam: Present: normal bowel sounds, soft. Absent: distended, firm , guarding, hernia, mass, tenderness, rebound. Extremities exam: Present: normal inspection, normal capillary refill. Upper extremity pulses 2+. Lower extremity pulses 2+. Absent: calf tenderness, edema Musculoskeletal: Present: No Fluid Collection, No Pain, Normal Range of Motion Back exam: Present: normal inspection. Absent: muscle spasm, vertebral tenderness Neurological exam: Present: alert, oriented X3, grossly intact without resting or essential tremor Psychiatric exam: Present: normal affect, normal mood Skin exam: Present: normal color, warm, dry, intact. Absent: cyanosis, diaphoretic, rash, urticaria Right groin: No bleeding or palpable hematoma. No bruit at site. Femoral pulse 3 +. Ecchymosis and tenderness to palpation noted to right groin. Result/EKG - Labs CBC & BMP: 01/02/17 11:00 01/02/17 04:59 Lab Results: I have reviewed the past 24 hour labs Labs: Laboratory Results - last 24 hr 01/01/17 01/01/17 01/01/17 13:31 13:31 21:42 WBC RBC Hgb Hct MCV MCH MCHC RDW Plt Count MPV Neut % (Auto) Lymph % (Auto) [place] % (Auto) Eos % (Auto) Baso % (Auto) Neut # (Auto) Lymph # (Auto) [place] # (Auto) Eos # (Auto) Baso # (Auto) Immature Gran % Nucleated RBC % Immature Gran # Nucleated RBCs # Immature Plt Fraction Sodium Potassium Chloride Carbon Dioxide Anion Gap BUN Creatinine GFR Calculation BUN/Creatinine Ratio Glucose POC Glucose 93 Calculated Osmolality Calcium Magnesium Troponin I 12.500 H D B-Natriuretic Peptide 1115 H 01/02/17 01/02/17 04:59 04:59 WBC 10.9 RBC 3.05 L Hgb 9.6 L Hct 30.4 L MCV 99.7 MCH 32 MCHC 31.6 L RDW 13.5 Plt Count 261 MPV 9.0 L Neut % (Auto) 70.4 Lymph % (Auto) 18.7 L [place] % (Auto) 7.7 Eos % (Auto) 2.5 Baso % (Auto) 0.2 Neut # (Auto) 7.6 H Lymph # (Auto) 2.0 [place] # (Auto) 0.8 Eos # (Auto) 0.3 Baso # (Auto) 0.0 Immature Gran % 0.5 Nucleated RBC % 0.0 Immature Gran # 0.05 Nucleated RBCs # 0.00 Immature Plt Fraction 0.0 Sodium 142 Potassium 4.6 Chloride 107 Carbon Dioxide 30 Anion Gap 9.6 BUN 10 Creatinine 1.00 GFR Calculation 47 BUN/Creatinine Ratio 10.00 Glucose 81 POC Glucose Calculated Osmolality 280.1 Calcium 8.2 L Magnesium 1.9 Troponin I B-Natriuretic Peptide - EKG EKG results: interpreted by me, sinus rhythm Specialty Discharge - Follow Up or Referrals
--- NOTE | 2017-01-02 09:01 | CT Report ---
Referring physician: Juan Goldstein MD EXAM: CT pelvis without contrast DATE: 01/02/2017 COMPARISON: None REASON: Status post heart catheterization, evaluate for retroperitoneal bleed TECHNIQUE: Axial images of the abdomen were obtained without the use IV contrast. Sagittal and coronal reformatted images were acquired. Total DLP was 191.90 mGy*cm. FINDINGS: Arterial calcifications are noted. Contrast in the distended urinary bladder. Prior cholecystectomy. Diverticulosis of colon with no evidence of diverticulitis, appendicitis, free air, or free fluid. Fixation screws in the right hip with old healed fracture, osteopenia and degenerative changes. Recent right femoral heart catheterization with associated adjacent hematoma measuring approximately 44 mm in transverse diameter just above the puncture site. There is minimal retroperitoneal extension on the right. IMPRESSION: Recent right heart catheterization with hematoma at the level of the puncture site with retroperitoneal extension measuring 44 mm in maximal transverse diameter. Minimal extension into the right side of the pelvis in the right retroperitoneal location. If symptoms progress, follow-up CT may be helpful for further evaluation as discussed with Dr. Goldstein at 8:45 AM on 01/02/2017. Contrast in the distended urinary bladder with arterial calcifications, diverticulosis of the colon, postoperative findings in the right hip, and osteopenia. The CT exam was performed using one or more of the following dose reduction techniques: Automated exposure control and adjustment of the mA and/or kV according to patient size. PROCEDURE INTERPRETED AT [facility] DEPARTMENT OF RADIOLOGY Final Report Signed by: Dr. Shanta Haider
--- NOTE | 2017-01-02 09:51 | Physician Query Form ---
CLICK EDIT DOCUMENT TO SELECT QUERY ANSWER --> OK --> SIGN Jillian Barrera RN, CCDS Certified Clinical Fastener Sewing Machine Operator W) [phone] (f) [phone] [email or web address] PROVIDERS: Make your selection(s) from the choices in EACH section by typing an "x" and enter comments in the comment section. Please use your independent medical judgment in providing your response. This request does not imply that any particular answer is desired or expected. CLINICAL INDICATORS: (Providers should not edit this section) The medical record indicates that the patient was admitted with a Non-ST Elevated myocardial infarction, had a cath with Stent", "We checked her BNP and it went from 134 to 1115. We'll give her a one time dose of 40mg IV Lasix." Please provide further specificity regarding CHF. ACUITY: ( x) Acute ( ) Chronic ( ) Acute on Chronic ( ) Clinically unable to determine TYPE: ( ) Systolic (HFrEF - heart failure with reduced systolic function/EF) ( ) Diastolic (HFpEF - heart failure with preserved systolic function/EF) ( x) Combined Systolic/Diastolic ( ) Other, please specify: ( ) Clinically unable to determine ( ) Past Medical History of Systolic CHF ( ) Past Medical History of Diastolic CHF ( ) Clinically unable to determine COMMENTS: PLEASE SEE THE PROGRESS NOTE FROM 01/02/17 08:24 IN WHICH CONGESTIVE HEART FAILURE IS CLEARLY LISTED A DIAGNOSIS WITH THE TYPE LISTED SYSTOLIC, AND THE CHRONICITY LISTED ACUTE! THANK YOU. PLEASE ALSO DOCUMENT RESPONSE IN PROGRESS NOTES AND/OR DISCHARGE SUMMARY Use of terms such as suspected, likely, or probable (associated with a specific diagnosis that is being evaluated, monitored, or treated as if it exists) are acceptable and can be restated in the discharge summary if not ruled out. MTDD
--- NOTE | 2017-01-02 10:46 | Vascular Surgery Consult Note ---
History of Present Illness Chief complaint: hemorrhage at cath site History of present illness: Ms. Rojas is a 81 year old female This 41-year-old woman was admitted with an acute WA and underwent cardiac catheterization and stenting on 12/31/2016. She appeared to be doing reasonably well but was noted yesterday to have dropping blood pressure from her normal of 120s systolic into the 80 and 90 systolic and this is been persistent. Her heart rate has not increased however with that and remains in the 60s and 70s. Blood count has dropped from admission 37 to now 30 hematocrit lately count is reasonably stable. She is very sore and does have bruising about her right inguinal region but does not have a large palpable hematoma. She is complaining of pain under her ribs and in her back but I understand she has been held in Trendelenburg position a good bit during the night. She states her right leg is sore from holding still but she is able to move it and has normal sensation in the foot. I cannot palpate pedal pulses however. I have reviewed her CT scan as she has a modest hematoma about the catheterization site with a minimal amount of retroperitoneal extension but in my opinion this is not a significant retroperitoneal hematoma. At this time she is on aspirin and Brilinta for her cardiac stents which will of course increase the risk of further bleeding but she does not appear to have an ongoing major hemorrhage at this time. My recommendation would be to go ahead and let her have dinner today sit up in the bed as is comfortable repeat the CBC in the morning as has been ordered. Ideally we would stop the Brilinta to be certain bleeding ceases but with the new stents that might not be an appropriate approach. I will continue to follow with Home Medications Medication Instructions Recorded Confirmed Type Doxepin [SINEquan] 50 mg PO BEDTIME 10/05/14 12/31/16 History amLODIPine [Norvasc] 2.5 mg PO DAILY 07/14/15 12/31/16 History Aspirin [Ecotrin] 81 mg PO DAILY #30 07/20/15 12/31/16 Rx clonazePAM [Klonopin] 1 mg PO BID #60 07/20/15 12/31/16 Rx Allergies Allergy/AdvReac Type Severity Reaction Status Date / Time Penicillins AdvReac Intermediate Anxiety Verified 10/05/14 11:37 steriods AdvReac Intermediate Cramping Uncoded 10/05/14 11:37 of the Muscles Medical,Surgical,& Family Hx - Medical History Cardio: History of: Hypertension Psychological: History of: Depression Respiratory: History of: Bronchitis, COPD, Pneumonia, Respiratory Problems ( chronic abnormal CT/CXR) Musculoskeletal: History of: Degenerative Disk Disease - Surgical History Neurologic Surgeries: Patient denies: Neurologic Surgery Reproductive Surgeries: Surgical HX of;: Hysterectomy Orthopedic Surgeries: Surgical HX of;: Orthopedic Surgery (hip, ankle, foot right) - Family History Family History: Reports;: Family Cancer, Family Diabetes, Family Heart Disease - Social History Smoking Status: Never smoker Frequency of Alcohol Use: None Type of Drug Use: None Exam - Constitutional Vitals: Period Temp Pulse Resp BP Sys/Rebollar Pulse Ox Last 24 Hr 96.6 F-97.8 F 63-73 16-20 74-101/40-64 95-100 Results - Labs CBC & BMP: 01/02/17 04:59 01/02/17 04:59 Specialty Discharge - Follow Up or Referrals
[2017-01-02] MEDS ORDERED: ALUM/MAG/SIMETH/LIDO VISC 1:1 30 ML BOTTLE PO ONE (10:47)
--- NOTE | 2017-01-02 10:53 | EKG Report ---
Stationary ECG Study [facility] Test Date: 01/02/2017 10:50:09 AM Pat Name: TAVON MORGAN Department: Room: 288 Gender: F Ostomy Rn: : 1935 Requested by: Wil Monroy Order Number: [id number] Reading MD: INEZ IQBAL Intervals [place] Rate: 83 P: 53 SC: 173 QRS: 66 QRSD: 76 T: 267 QT: 426 QTc: 466 Interpretive Statements SINUS RHYTHM WITH FREQUENT SUPRAVENTRICULAR PREMATURE COMPLEXES SEPTAL MYOCARDIAL INFARCTION, OF INDETERMINATE AGE MODERATE T-WAVE ABNORMALITY Electronically Signed On 01-02-17 16:57:16 CDT by INEZ IQBAL [email or web address]
[2017-01-02 11:07] LABS: Hematocrit 32.8 VOL% (35.7-47.0); Hemoglobin 10.2 GM/DL (12.0-16.0)
[2017-01-02] MEDS: CIPROFLOXACIN 500 MG TABLET PO SCH ×2 (11:19→21:19)
[2017-01-02] MEDS: TICAGRELOR 90 MG TABLET PO SCH ×2 (11:20→21:19)
[2017-01-02] MEDS: PANTOPRAZOLE 40 MG TABLET PO SCH (11:20)
[2017-01-02] MEDS: ASPIRIN EC 81 MG TABLET PO SCH (11:24)
[2017-01-02 11:42] LABS: CKMB % 11.4 %
[2017-01-02 11:44] LABS: Troponin I Only 8.34 NG/ML (0.00-0.045)
[2017-01-02] MEDS: clonazePAM 0.5 MG TABLET PO SCH ×2 (14:05→21:17)
[2017-01-02] MEDS: NEBIVOLOL 5 MG TABLET PO SCH (14:05)
[2017-01-02] MEDS: LISINOPRIL 2.5 MG TABLET PO SCH (14:06)
[2017-01-02 14:50] LABS: Hematocrit 30.9 VOL% (35.7-47.0); Hemoglobin 9.7 GM/DL (12.0-16.0)
[2017-01-02 19:13] LABS: Hematocrit 29.5 VOL% (35.7-47.0); Hemoglobin 9.4 GM/DL (12.0-16.0)
[2017-01-02] MEDS: DOXEPIN 25 MG CAPSULE PO SCH (21:19)
[2017-01-02] MEDS: ZALEPLON 5 MG CAPSULE PO PRN (21:19)
[2017-01-02] MEDS: ATORVASTATIN 40 MG TABLET PO SCH (21:19)
[2017-01-02 22:46] LABS: Hematocrit 28.4 VOL% (35.7-47.0); Hemoglobin 9.1 GM/DL (12.0-16.0)
[2017-01-03] MEDS: SODIUM CHLORIDE 0.9% 1,000 ML IV SCH (04:34)
[2017-01-03 06:17] LABS: Basophils % 0.2 % (0.0-0.8); Eosinophils # 0.2 10*3/uL (0.0-0.87); Eosinophils % 2.5 % (0.00-10.9); Hematocrit 28.5 VOL% (35.7-47.0); Hemoglobin 9.2 GM/DL (12.0-16.0); Immature Granulocytes % 0.5 %; Immature Granulocytes Absolute 0.05 #; Lymphocytes # 1.8 10*3/uL (1.4-4.0); Lymphocytes % 18.1 % (21.3-54.2); Mean Corpuscular HGB Conc 32.3 GM/DL (32-36); Mean Corpuscular Hemoglobin 32 PG (27-34); Mean Corpuscular Volume 98.3 FL (87-102); Mean Platelet Volume 9.5 FL (9.6-12.0); Monocytes # 0.9 10*3/uL (0.11-0.8); Monocytes % 8.8 % (1.7-12.7); Neutrophils # 6.8 10*3/uL (1.4-7.4); Neutrophils % 69.9 % (38.7-73.9); Platelet Count 260 T/CUMM (130-400); Red Cell Distribution Width 13.6 % (9.3-17.3); White Blood Count 9.7 T/CUMM (4-12)
[2017-01-03 06:20] LABS: Hematocrit 28.7 VOL% (35.7-47.0); Hemoglobin 9.1 GM/DL (12.0-16.0)
[2017-01-03 06:37] LABS: Calcium 8.2 MG/DL (8.5-10.1); Magnesium 1.9 MG/DL (1.8-2.4); Osmolality,Calculated 278.3 MOS/KG (273-304); Potassium 3.9 MMOL/L (3.5-5.1)
[2017-01-03] MEDS: CIPROFLOXACIN 500 MG TABLET PO SCH ×2 (09:05→21:55)
[2017-01-03] MEDS: PANTOPRAZOLE 40 MG TABLET PO SCH (09:05)
[2017-01-03] MEDS: clonazePAM 0.5 MG TABLET PO SCH ×2 (09:05→21:55)
[2017-01-03] MEDS: TICAGRELOR 90 MG TABLET PO SCH ×2 (09:05→21:55)
[2017-01-03] MEDS: ASPIRIN EC 81 MG TABLET PO SCH (09:05)
[2017-01-03] MEDS: NEBIVOLOL 5 MG TABLET PO SCH (09:06)
[2017-01-03] MEDS: LISINOPRIL 2.5 MG TABLET PO SCH (09:06)
--- NOTE | 2017-01-03 11:27 | Cardiology Progress Note ---
Assessment and Plan - Time spent with patient Time spent with patient: Less than 30 minutes (1) NSTEMI (non-ST elevated myocardial infarction) Status: Acute Assessment and plan: See plan of care listed below. Current Visit: Yes (2) Hypertension Status: Chronic Assessment and plan: See plan of care listed below. Current Visit: Yes (3) COPD (chronic obstructive pulmonary disease) Status: Chronic Assessment and plan: See plan of care listed below. Current Visit: Yes (4) Abnormal chest x-ray Status: Chronic Assessment and plan: See plan of care listed below. Current Visit: Yes (5) Elevated troponin Status: Acute Assessment and plan: See plan of care listed below. Current Visit: Yes (6) Family history of coronary artery disease Status: Chronic Assessment and plan: See plan of care listed below. Current Visit: Yes (7) UTI (urinary tract infection) Status: Acute Assessment and plan: See plan of care listed below. Current Visit: Yes (8) Ischemic cardiomyopathy Status: Acute Assessment and plan: See plan of care listed below. Current Visit: Yes (9) Retroperitoneal hematoma Status: Acute Assessment and plan: See plan of care listed below. Current Visit: Yes (10) Congestive heart failure Status: Acute Assessment and plan: See plan of care listed below. Current Visit: No Qualifiers: Congestive heart failure type: systolic Congestive heart failure chronicity : acute Qualified Code(s): I50.21 - Acute systolic (congestive) heart failure Cardiology - PN: Subj Interval history: Press Shop Supervisor: new to Dr. Goldstein PCP/Fixed Assets Accountant: Dr. Anaya SUMMARY: Ms. Rojas is a 81 year old female with a history of COPD, hypertension, osteoporosis, and history of abnormal chest x-ray and abnormal CT scan of the chest who presented with complaints of chest pain that began the night before admission with associated symptoms of diaphoresis, dyspnea, and nausea. Her troponin jennifer to 14.5 with CK-MB 46.4, and CPK 276. D-Dimer was negative. She had no acute EKG changes. She underwent left heart catheterization with Dr. Tadeo for non-Q-wave [place] and receivd a successful OM1 stent and successful proximal LAD stent. She was transferred to telemetry for overnight monitoring. Echocardiogram revealed EF 30% with trace MR, trace AI, severe TR, moderate to severe pulmonary hypertension, grade II/IV diastolic dysfunction. She has been started on DAPT with aspirin and brilinta, statin, beta marta, and GILBERTO inhibitor. She was also found to have a UTI upon admission and has been started on oral antibiotics. Urine culture sensitivity report returned sensitive to Cipro. Blood cultures were negative. On 01/01-01/02 , she developed a hematoma and hypotension through the night. She required fluid bolus to improve her pressure and subsequently became slightly overloaded and required IV Lasix. She underwent pelvic CT and was found to have a modest hematoma at her right groin cath site with a minimal amount of retroperitoneal extension. Dr. Lake with vascular surgery was consulted to see her and she requires no further intervention at this time. H&H has slightly diminished but is stable. JANUARY 03, 2017 UPDATE: Ms. Rojas has not been up very much, she is still quite sore. She does have a modest hematoma in the right groin with notable ecchymosis. She remains fairly hypotensive and is unable to tolerate all of her blood pressure medications. We will continue close observation. Physical therapy is seeing her. She should be stable to get out of the bed and try to ambulate. She is still quite weak. I've discussed with the patient and her [id number] the possibility of swingbed at discharge and they are agreeable. pupil personnel services director has been consulted. Dr. Goldstein to follow with further plan and addendum. ASSESSMENT/PLAN: 1. NSTEMI- Patient presents with symptoms suspicious for angina and elevated troponin. She was taken to the general laborer where she underwent stent placement to the OM1 and proximal LAD. Echocardigoram revealed EF 30%. We are continuing with DAPT with aspirin and brilinta, statin, beta marta, and GILBERTO inhibitor. She has a history of chronic lung issues, therefore, we have started her on a more cardioselective beta marta with bystolic. Cardiac rehab has seen her. Case management was also consulted for discharge planning. 2. HYPERTENSION - Currently well controlled. Will continue to monitor and adjust accordingly. 3. COPD - Routinely followed by Dr. Anaya. She continues to have coarse and abnormal breath sounds and has chronic lung issues. She has been started on breathing treatments PRN. Once she is discharged, she would benefit from a follow up appointment with her logistics associate. 4. HISTORY OF ABNORMAL CHEST XRAY- Revealed increased pulmonary markings bilaterally and a groundglass appearance. No cardiomegaly. Reduced atelectasis/ infiltration/edema at the right lung base. Similar progressive findings at the left lung base. Underlying chronic scarring. 5. ELEVATED TROPONIN - Peaked at 14.5 with CK-MB CK-MB 46.4, and CPK 276. Troponin is now trending down appropriately. 6. FAMILY HISTORY OF CAD - Patient states most everyone on her mom's side of the family has had heart disease. 7. UTI - She is receiving IV antibiotics in the ER. She was transitioned to PO Cipro. Urine culture sensitivity report returned sensitive to Cipro. We will continue with current therapy and continue to monitor. 8. ISCHEMIC CARDIOMYOPATHY - With EF 30%. She has been started on appropriate medications. She will need to follow up with Dr. Goldstein in 1-2 weeks for groin check, and will then need repeat echocardiogram in 3 months to reassess cardiac function. 9. RETROPERITONEAL HEMATOMA- Dr. Lake has been consulted and will follow with us. Will continue to monitor H&H. 10. SYSTOLIC CHF - Continue to monitor fluid status. Since admission, she has required IV Lasix for fluid overload on 2 occasions. She has been started on ASA , Brilinta, beta marta, Gilberto inhibitor, and statin. Will continue to monitor. Exam (Progress Note) - Constitutional Vitals: Period Temp Pulse Resp BP Sys/Rebollar Pulse Ox Last 24 Hr 97.8 F-99.5 F 79-86 16-20 77-98/40-56 91-99 Exam: General appearance: Pleasant and cooperative. no acute distress. Head exam: Present: normal inspection, normocephalic, atraumatic. Absent: hematoma, laceration Eye exam: Present: EOMI. Absent: conjunctival injection, nystagmus, periorbital swelling, scleral icterus, laceration to eyelids Pupils: Present: PERRL. Absent: constricted, dilated, fixed, irregular, unequal ENT exam: Present: normal exam, normal external ear exam Neck exam: Present: normal inspection. Absent: lymphadenopathy, meningismus, tenderness, thyromegaly Respiratory exam: Present: Coarse breath sounds with end expiratory wheezes noted posteriorly. Absent: accessory muscle use, chest wall tenderness. Cardiovascular exam: Present: regular rate and rhythm. Absent: gallop, JVD, rubs GI/Abdominal exam: Present: normal bowel sounds, soft. Absent: distended, firm , guarding, hernia, mass, tenderness, rebound. Extremities exam: Present: normal inspection, normal capillary refill. Upper extremity pulses 2+. Lower extremity pulses 2+. Absent: calf tenderness, edema Musculoskeletal: Present: No Fluid Collection, No Pain, Normal Range of Motion Back exam: Present: normal inspection. Absent: muscle spasm, vertebral tenderness Neurological exam: Present: alert, oriented X3, grossly intact without resting or essential tremor Psychiatric exam: Present: normal affect, normal mood Skin exam: Present: normal color, warm, dry, intact. Absent: cyanosis, diaphoretic, rash, urticaria Right groin: No bleeding. Modest hematoma noted to right groin. No bruit at site. Femoral pulse 3+. Ecchymosis and tenderness to palpation noted to right groin. Result/EKG - Labs CBC & BMP: 01/03/17 04:31 01/03/17 04:31 Lab Results: I have reviewed the past 24 hour labs Labs: Laboratory Results - last 24 hr 01/02/17 01/02/17 01/02/17 11:00 14:36 18:47 WBC RBC Hgb 9.7 L 9.4 L Hct 30.9 L 29.5 L MCV MCH MCHC RDW Plt Count MPV Neut % (Auto) Lymph % (Auto) [place] % (Auto) Eos % (Auto) Baso % (Auto) Neut # (Auto) Lymph # (Auto) [place] # (Auto) Eos # (Auto) Baso # (Auto) Immature Gran % Nucleated RBC % Immature Gran # Nucleated RBCs # Immature Plt Fraction Sodium Potassium Chloride Carbon Dioxide Anion Gap BUN Creatinine GFR Calculation BUN/Creatinine Ratio Glucose Calculated Osmolality Calcium Magnesium Total Creatine Kinase 136 D CK-MB (CK-2) 15.5 H D CK and CKMB Interp 11.4 Troponin I 8.340 H D 01/02/17 01/03/17 01/03/17 22:39 04:31 04:31 WBC 9.7 RBC 2.90 L Hgb 9.1 L 9.2 L Hct 28.4 L 28.5 L MCV 98.3 MCH 32 MCHC 32.3 RDW 13.6 Plt Count 260 MPV 9.5 L Neut % (Auto) 69.9 Lymph % (Auto) 18.1 L [place] % (Auto) 8.8 Eos % (Auto) 2.5 Baso % (Auto) 0.2 Neut # (Auto) 6.8 Lymph # (Auto) 1.8 [place] # (Auto) 0.9 H Eos # (Auto) 0.2 Baso # (Auto) 0.0 Immature Gran % 0.5 Nucleated RBC % 0.0 Immature Gran # 0.05 Nucleated RBCs # 0.00 Immature Plt Fraction 0.0 Sodium 141 Potassium 3.9 Chloride 106 Carbon Dioxide 29 Anion Gap 9.9 BUN 9 Creatinine 0.90 GFR Calculation 53 BUN/Creatinine Ratio 10.00 Glucose 89 Calculated Osmolality 278.3 Calcium 8.2 L Magnesium 1.9 Total Creatine Kinase CK-MB (CK-2) CK and CKMB Interp Troponin I 01/03/17 04:31 WBC RBC Hgb 9.1 L Hct 28.7 L MCV MCH MCHC RDW Plt Count MPV Neut % (Auto) Lymph % (Auto) [place] % (Auto) Eos % (Auto) Baso % (Auto) Neut # (Auto) Lymph # (Auto) [place] # (Auto) Eos # (Auto) Baso # (Auto) Immature Gran % Nucleated RBC % Immature Gran # Nucleated RBCs # Immature Plt Fraction Sodium Potassium Chloride Carbon Dioxide Anion Gap BUN Creatinine GFR Calculation BUN/Creatinine Ratio Glucose Calculated Osmolality Calcium Magnesium Total Creatine Kinase CK-MB (CK-2) CK and CKMB Interp Troponin I - EKG EKG results: interpreted by me, sinus rhythm Specialty Discharge - Follow Up or Referrals
--- NOTE | 2017-01-03 13:08 | Event Note ---
Ms. Rojas is doing a bit better today less tenderness but she still has a modest hematoma in the right inguinal region. Blood count appears to have stabilized at 28 blood pressure still running a little on the low side in the 90s but heart rate is not particularly elevated. She has gotten up to the bedside commode but has not moved around much with physical therapy. I think at this point in time it will be safe for physical therapy to help her gently ambulate in preparation for probably going to the swing bed and then going home. Her family tells me that she does live alone with family not close at hand and I think the swing bed is an excellent idea
[2017-01-03] MEDS: ZINC OXIDE PASTE 113 GM TUBE TOP SCH ×2 (14:31→21:55)
[2017-01-03] MEDS: ATORVASTATIN 40 MG TABLET PO SCH (21:54)
[2017-01-03] MEDS: DOXEPIN 25 MG CAPSULE PO SCH (21:54)
[2017-01-03] MEDS: BISACODYL 5 MG TABLET PO PRN (22:00)
[2017-01-03] MEDS: ZALEPLON 5 MG CAPSULE PO PRN (22:00)
[2017-01-04 05:16] LABS: Basophils % 0.4 % (0.0-0.8); Eosinophils # 0.4 10*3/uL (0.0-0.87); Hematocrit 31.8 VOL% (35.7-47.0); Hemoglobin 10.1 GM/DL (12.0-16.0); Immature Granulocytes % 0.3 %; Immature Granulocytes Absolute 0.03 #; Lymphocytes # 1.8 10*3/uL (1.4-4.0); Lymphocytes % 19.2 % (21.3-54.2); Mean Corpuscular HGB Conc 31.8 GM/DL (32-36); Mean Corpuscular Hemoglobin 31 PG (27-34); Mean Corpuscular Volume 98.1 FL (87-102); Mean Platelet Volume 9.3 FL (9.6-12.0); Monocytes # 0.7 10*3/uL (0.11-0.8); Monocytes % 7.2 % (1.7-12.7); Neutrophils # 6.5 10*3/uL (1.4-7.4); Neutrophils % 68.9 % (38.7-73.9); Platelet Count 303 T/CUMM (130-400); Red Blood Count 3.24 MC/CUMM (3.8-5.5); Red Cell Distribution Width 13.3 % (9.3-17.3); White Blood Count 9.5 T/CUMM (4-12)
[2017-01-04 05:48] LABS: Calcium 8.7 MG/DL (8.5-10.1); Magnesium 2.1 MG/DL (1.8-2.4); Osmolality,Calculated 281.1 MOS/KG (273-304); Potassium 3.5 MMOL/L (3.5-5.1)
[2017-01-04] MEDS: TICAGRELOR 90 MG TABLET PO SCH (08:54)
[2017-01-04] MEDS: clonazePAM 0.5 MG TABLET PO SCH (08:54)
[2017-01-04] MEDS: CIPROFLOXACIN 500 MG TABLET PO SCH (08:55)
[2017-01-04] MEDS: ASPIRIN EC 81 MG TABLET PO SCH (08:56)
[2017-01-04] MEDS: NEBIVOLOL 5 MG TABLET PO SCH (08:56)
[2017-01-04] MEDS: PANTOPRAZOLE 40 MG TABLET PO SCH (08:56)
[2017-01-04] MEDS: LISINOPRIL 2.5 MG TABLET PO SCH (08:57)
[2017-01-04] MEDS: ZINC OXIDE PASTE 113 GM TUBE TOP SCH (08:57)
--- NOTE | 2017-01-04 10:01 | Event Note ---
As for his stable starting to get up and walk with a cane feels better hematocrit is up to 31. At this point I believe she is moving to the swing bed today which I think is entirely appropriate I can see her again on a as needed basis.
--- NOTE | 2017-01-04 10:32 | Discharge Summary ---
Hospital Course - Hospital Course Hospital Course: Slate Splitting Supervisor: christopher Goldstein PCP/Bale Sewer: Dr. Anaya SUMMARY: Ms. Rojas is a 81 year old female with a history of COPD, hypertension, osteoporosis, and history of abnormal chest x-ray and abnormal CT scan of the chest who presented with complaints of chest pain that began the night before admission with associated symptoms of diaphoresis, dyspnea, and nausea. Her troponin jennifer to 14.5 with CK-MB 46.4, and CPK 276. D-Dimer was negative. She had no acute EKG changes. She underwent left heart catheterization with Dr. Tadeo for non-Q-wave [place] and receivd a successful OM1 stent and successful proximal LAD stent. She was transferred to telemetry for overnight monitoring. Echocardiogram revealed EF 30% with trace MR, trace AI, severe TR, moderate to severe pulmonary hypertension, grade II/IV diastolic dysfunction. She has been started on DAPT with aspirin and brilinta, statin, beta marta, and THERESA inhibitor. She was also found to have a UTI upon admission and has been started on oral antibiotics. Urine culture sensitivity report returned sensitive to Cipro. SHE WILL NEED TO CONTINUE TAKING PO CIPRO UNTIL 01/06/17 AT 2100. Blood cultures were negative. On 01/01-01/02, she developed a hematoma and hypotension through the night. She required fluid bolus to improve her pressure and subsequently became slightly overloaded and required IV Lasix. She underwent pelvic CT and was found to have a modest hematoma at her right groin cath site with a minimal amount of retroperitoneal extension. Dr. Lake with vascular surgery was consulted to see her and she requires no further intervention at this time. H&H has slightly diminished but is stable. She does have a modest hematoma in the right groin with notable ecchymosis that has remained stable. financial services specialist was consulted for swingbed placement, as Ms. Rojas remains fairly weak and debilitated. She was accepted to swing bed at [facility] and will be transferred there today. Her labs remain stable. She remains borderline hypotensive and for this reason SHE IS UNABLE TO TOLERATE AN THERESA INHIBITOR. This may be readdressed on an outpatient basis if her blood pressure improves. She will continue with DAPT as well as statin and beta marta. She will follow up with Dr. Goldstein in 2 weeks with CBC, BMP w/ Mg, and EKG. She will need to follow up with Dr. Anaya in 4-6 weeks. When Ms. Rojas is discharged home from swing bed, she will need to be on the following cardiac medications: Brilinta 90mg po BID Bystolic 5mg po BID Aspirin EC 81 mg po BID Atorvastatin 40mg po QHS - Time spent with patient Time with patient DS: Greater than 30 minutes Diagnosis - Discharge Diagnosis (1) NSTEMI (non-ST elevated myocardial infarction) Status: Resolved (2) Hypertension Status: Chronic (3) COPD (chronic obstructive pulmonary disease) Status: Chronic (4) Abnormal chest x-ray Status: Chronic (5) Elevated troponin Status: Acute (6) Family history of coronary artery disease Status: Chronic (7) UTI (urinary tract infection) Status: Acute (8) Ischemic cardiomyopathy Status: Acute (9) Retroperitoneal hematoma Status: Acute (10) Congestive heart failure Status: Acute Specialty Discharge - Follow Up or Referrals Follow up with: Devin Anaya MD [Physician] - 1 Month (Follow up with Dr. Anaya in 4-6 weeks. ) Simba Goldstein MD [Physician] - 2 Weeks (Follow up with Dr. Goldstein in 2 weeks with CBC, BMP w/ Mg, and EKG. ) Discharge Plan - Discharge Data Disposition: Swing Bed, Hos Based, Mc[facility] Karen Condition at Discharge: Stable Discharge Diet: heart healthy Activity: ambulate only with your walker, as per physical therapy, no lifting ( Do not lift over 5 pounds for 7 days. ) Hygiene: may shower (Do not submerge cath site beneath water for 1 week. Okay to shower, no tub baths. ) Weight Bearing at Discharge: full weight bearing Contact your physician if you experience:: fever over 101, Difficulty voiding, Redness or swelling, Nausea/Vomiting, Shortness of breath, Bleeding, pain uncontrolled by pain medications - Discharge Medications New Albuterol/Ipratropium Neb [Duoneb] 3 ml RESP TX RT Q6H PRN PRN Reason: Shortness Of Breath/Wheezing Atorvastatin [Lipitor] 40 mg PO BEDTIME #30 tablet Bisacodyl Tab [Dulcolax Tab] 10 mg PO DAILY PRN tablet PRN Reason: Constipation HYDROcodone/ACETAMIN 7.5-325 [[place] 7.5-325] 1 tablet PO Q4H PRN tablet PRN Reason: Pain Moderate (4-7) Magnesium Hydroxide Susp [Milk of Magnesia] 30 ml PO Q6H PRN PRN Reason: Constipation Nebivolol [Bystolic] 5 mg PO DAILY #30 tablet Pantoprazole Tab [Protonix Tab] 40 mg PO DAILY tablet Ticagrelor [Brilinta] 90 mg PO BID #180 tablet Zaleplon [Sonata] 5 mg PO BEDTIME PRN capsule PRN Reason: Sleep diphenhydrAMINE CAP [Benadryl Cap] 50 mg PO BEDTIME PRN capsule PRN Reason: Sleep Acetaminophen Tab [Tylenol Tab] 650 mg PO Q4H PRN tablet PRN Reason: Temp greater than 101F Ciprofloxacin Tab [Cipro Tab] 500 mg PO BID #3 tablet Ondansetron Inj [Zofran Inj] 4 mg IV Q4H PRN vial PRN Reason: Nausea/Vomiting Potassium Chloride Cap/Tab [K Dur] 20 meq PO .PER PROTOCOL PRN tablet PRN Reason: Hypokalemia Zinc Oxide Paste [Desitin Paste] 1 applic TOP BID applic Continue Doxepin [SINEquan] 50 mg PO BEDTIME Aspirin [Ecotrin] 81 mg PO DAILY #30 clonazePAM [Klonopin] 1 mg PO BID #60 Montelukast Tab [Singulair Tab] 10 mg PO DAILY Discontinued amLODIPine [Norvasc] 2.5 mg PO DAILY - Follow Up or Referral - Forms/Instructions Instructions: Myocardial Infarction (GEN), Left Heart Catheterization (DC), Heart Healthy Diet (GEN), Coronary Intravascular Stent Placement (DC) Exam - Constitutional Vitals: Period Temp Pulse Resp BP Sys/Rebollar Pulse Ox Last 24 Hr 97.6 F-100.5 F 70-77 16-20 87-101/51-56 89-100 Exam: General appearance: Pleasant and cooperative. no acute distress. Head exam: Present: normal inspection, normocephalic, atraumatic. Absent: hematoma, laceration Eye exam: Present: EOMI. Absent: conjunctival injection, nystagmus, periorbital swelling, scleral icterus, laceration to eyelids Pupils: Present: PERRL. Absent: constricted, dilated, fixed, irregular, unequal ENT exam: Present: normal exam, normal external ear exam Neck exam: Present: normal inspection. Absent: lymphadenopathy, meningismus, tenderness, thyromegaly Respiratory exam: Present: Coarse breath sounds with end expiratory wheezes noted posteriorly. Absent: accessory muscle use, chest wall tenderness. Cardiovascular exam: Present: regular rate and rhythm. Absent: gallop, JVD, rubs GI/Abdominal exam: Present: normal bowel sounds, soft. Absent: distended, firm , guarding, hernia, mass, tenderness, rebound. Extremities exam: Present: normal inspection, normal capillary refill. Upper extremity pulses 2+. Lower extremity pulses 2+. Absent: calf tenderness, edema Musculoskeletal: Present: No Fluid Collection, No Pain, Normal Range of Motion Back exam: Present: normal inspection. Absent: muscle spasm, vertebral tenderness Neurological exam: Present: alert, oriented X3, grossly intact without resting or essential tremor Psychiatric exam: Present: normal affect, normal mood Skin exam: Present: normal color, warm, dry, intact. Absent: cyanosis, diaphoretic, rash, urticaria Right groin: No bleeding. Modest hematoma noted to right groin, stable and improving. No bruit at site. Femoral pulse 3+. Ecchymosis and tenderness to palpation noted to right groin. Discharge Results Procedures and tests throughout hospitalization: Pending Orders 12/31/16 08:35 Blood Culture Stat Left heart catheterization 12/31/16: Selective coronary angiography The left main trunk is patent and bifurcates. The LAD is a moderate-sized vessel that is tortuous and has a 80% proximal stenosis after the first septal and diagonal branch. Diagonal branch is patent. The circumflex system is tortuous and has a 90% proximal OM1 stenosis with clot. The dominant coronary artery remains patent with mild irregularities only. No right to left collaterals. Left ventriculography The ejection fraction is 30% with severe anteroapical and inferoapical hypokinesis. The basal segments are hyperdynamic. No evidence for mitral regurgitation under the conditions of the study. Conclusions #1 increased LVEDP 20 #2 ejection fraction 30% with severe anteroapical and inferoapical hypokinesis #3 no mitral regurgitation #4 no aortic valve gradient #5 left main trunk-patent #6 LAD 80% proximal after first septal and diagonal branch #7 diagonal branch-mild disease #8 circumflex system-tortuous with 90% proximal OM1 with clot #9 dominant right coronary-mild luminal irregularities only. No right to left collaterals demonstrated #10 successful stent OM1. A 90% stenosis was reduced to mild irregularities using a 2.5 x 8 mm synergy drug-eluting stent, postdilated to 13 brandan creating a 2.80 mm lumen. #11 successful proximal LAD stent. A 80% stenosis was reduced to mild irregularities using a 2.75 x 12 mm Synergy drug-coated stent, postdilated to 13 brandan for 30 seconds, creating a 3.0 mm lumen. Good angiographic results obtained. Disposition The patient presented with a non-Q-wave infarction involving a hazy obtuse marginal branch which was stented with a 2.5 x 8 mm Synergy drug-coated stent, postdilated 2.80 mm lumen. BETY grade III flow restored. The proximal LAD was also stented with a 2.75 x 12 mm Synergy drug eluting stent, postdilated 3.0 mm lumen. Good result obtained. She does have significant LV dysfunction in the setting of acute infarction with ejection fraction of 30%. Hopefully, some of this represents stunned myocardium and will improve on serial echo follow-up. She will continue aspirin Brilinta and statin therapy and a CPK troponin BMP CBC in a.m. has been ordered. Cine pictures were reviewed with the patient's son and [id number]. Implants: Successful stent OM1 2.5 x 8 Synergy drug-coated stent postdilated 2.80. Successful proximal LAD stent 2.75 x 12 mm synergy drug-eluting stent postdilated 3.0 mm. Good result obtained. Labs on day of discharge: Labs from last 24 hours 01/04/17 01/04/17 04:43 04:43 WBC 9.5 RBC 3.24 L Hgb 10.1 L Hct 31.8 L MCV 98.1 MCH 31 MCHC 31.8 L RDW 13.3 Plt Count 303 MPV 9.3 L Neut % (Auto) 68.9 Lymph % (Auto) 19.2 L [place] % (Auto) 7.2 Eos % (Auto) 4.0 Baso % (Auto) 0.4 Neut # (Auto) 6.5 Lymph # (Auto) 1.8 [place] # (Auto) 0.7 Eos # (Auto) 0.4 Baso # (Auto) 0.0 Immature Gran % 0.3 Nucleated RBC % 0.0 Immature Gran # 0.03 Nucleated RBCs # 0.00 Immature Plt Fraction 0.0 Sodium 142 Potassium 3.5 Chloride 104 Carbon Dioxide 32 Anion Gap 9.5 BUN 9 Creatinine 0.90 GFR Calculation 53 BUN/Creatinine Ratio 10.00 Glucose 104 Calculated Osmolality 281.1 Calcium 8.7 Magnesium 2.1 Preliminary micro results at discharge 12/31/16 08:35 Blood Culture - Preliminary Blood No growth at 3 days 12/31/16 08:35 Blood Culture - Preliminary Blood No growth at 3 days DS: Provider Date of admission: 12/31/16 14:16 Primary care physician: Simba Paredes MD Attending physician on admission: Simba Goldstein MD Consults: 12/31/16 11:58 Consult to Cardiac Rehabilitation [CONS] Routine Reason for Cardiac Rehabilitation: Risk Factor Modification Other Consult Comment: Evaluate and recommend 12/31/16 17:26 Consult to Cardiac Rehabilitation [CONS] Routine Reason for Cardiac Rehabilitation: Risk Factor Modification Other Consult Comment: Evaluate and recommend 01/01/17 09:40 Consult to Physical Therapy [CONS] Routine Reason for Physical Therapy: Weakness 01/02/17 08:49 Consult to Physician [CONS] Routine Comment: small Rt retroperitoneal bleed Consulting Provider: Kalin Lake When should Consulting Provider be notified: Now Discharging clinician: RENETTA Martínez Expected date of discharge: 01/04/17
[2017-01-04] MEDS ORDERED: MONTELUKAST 10 MG TABLET PO SCH (11:00)
[2017-01-04 12:06] VITALS: BP 92/56
== END 2017-01-04 12:10 | disposition swing bed (61) | DRG 246 ==
LOC: EDBD → EDUNIT# → N.EDINP 07:49 → N.ED 07:49 → N.TELEN 13:40
PROVIDERS: ADMIT Internal Medicine Cardiovascular Disease; ATTEND Internal Medicine Cardiovascular Disease
PROC: CLCCHCL (ICD-10-PCS; 2016-12-31 15:15)

== ENCOUNTER 2017-06-23 14:52 | Inpatient (IN) ==
[2017-06-23 15:43] LABS: Basophils % 0.5 % (0.0-0.8); Eosinophils # 0.4 10*3/uL (0.0-0.87); Eosinophils % 5.7 % (0.00-10.9); Hematocrit 35.3 VOL% (35.7-47.0); Hemoglobin 11.1 GM/DL (12.0-16.0); Immature Granulocytes % 0.3 %; Immature Granulocytes Absolute 0.02 #; Lymphocytes # 1.5 10*3/uL (1.4-4.0); Lymphocytes % 20.6 % (21.3-54.2); Mean Corpuscular HGB Conc 31.4 GM/DL (32-36); Mean Corpuscular Hemoglobin 32 PG (27-34); Mean Corpuscular Volume 100.6 FL (87-102); Mean Platelet Volume 8.9 FL (9.6-12.0); Monocytes # 0.5 10*3/uL (0.11-0.8); Monocytes % 7.1 % (1.7-12.7); Neutrophils # 4.8 10*3/uL (1.4-7.4); Neutrophils % 65.8 % (38.7-73.9); Platelet Count 320 T/CUMM (130-400); Red Blood Count 3.51 MC/CUMM (3.8-5.5); Red Cell Distribution Width 13.6 % (9.3-17.3); White Blood Count 7.3 T/CUMM (4-12)
[2017-06-23 15:52] LABS: PT Patient Result 10.9 SECS
[2017-06-23 16:15] LABS: Alanine Aminotransferase 18 U/L (13-56); Albumin 2.7 G/DL (3.4-5.0); Alkaline Phosphatase 153 U/L (45-117); Aspartate Amino Transferase 27 U/L (0-37); Blood Urea Nitrogen 7 MG/DL (7-18); Calcium 8.9 MG/DL (8.5-10.1); Glucose 82 MG/DL (74-106); Potassium 4.3 MMOL/L (3.5-5.1); Sodium 143 MMOL/L (136-145); Total Protein 6.6 G/DL (6.4-8.3); Troponin I Only < 0.015 NG/ML (0.00-0.045)
[2017-06-23] MEDS ORDERED: LEVOFLOXACIN INJ 750 MG in PREMIX 1 EACH IV STA (16:20)
[2017-06-23] MEDS ORDERED: LEVOFLOXACIN INJ 150 ML IV ONE (16:56)
[2017-06-23] MEDS ORDERED: LACTULOSE 20 GM/30 ML UDCUP PO PRN (17:51)
[2017-06-23] MEDS ORDERED: ACETAMINOPHEN 325 MG TABLET PO PRN (17:51)
[2017-06-23] MEDS ORDERED: DOCUSATE SODIUM 100 MG CAPSULE PO PRN (17:51)
[2017-06-23] MEDS ORDERED: MORPHINE 2 MG/1 ML SYRINGE IV PRN (17:51)
[2017-06-23] MEDS ORDERED: ONDANSETRON 4 MG/2 ML VIAL IV PRN (17:51)
[2017-06-23] MEDS ORDERED: SODIUM CHLORIDE 0.9% 1,000 ML IV SCH (18:00)
[2017-06-23] MEDS ORDERED: BISACODYL 5 MG TABLET PO PRN (18:14)
[2017-06-23] MEDS ORDERED: IBUPROFEN 400 MG TABLET PO PRN (18:14)
[2017-06-23] MEDS ORDERED: NITROGLYCERIN SL 0.4 MG TABLET SL PRN (18:20)
[2017-06-23] MEDS: ALBUTEROL/IPRATROPIUM 3 ML NEB RESP TX SCH (19:07)
[2017-06-23] MEDS: CARVEDILOL 6.25 MG TABLET PO SCH (21:09)
[2017-06-23] MEDS: DOXEPIN 25 MG CAPSULE PO SCH (21:10)
[2017-06-23] MEDS: guaiFENesin/DM ER 600-30 MG TABLET PO SCH (21:10)
[2017-06-23] MEDS: clonazePAM 0.5 MG TABLET PO SCH (21:10)
[2017-06-23] MEDS: ATORVASTATIN 40 MG TABLET PO SCH (21:10)
[2017-06-23] MEDS: FERROUS SULFATE 325 MG TABLET PO SCH (21:10)
[2017-06-24 00:49] LABS: Basophils % 0.6 % (0.0-0.8); Eosinophils # 0.4 10*3/uL (0.0-0.87); Eosinophils % 6.3 % (0.00-10.9); Hematocrit 32.1 VOL% (35.7-47.0); Hemoglobin 10.6 GM/DL (12.0-16.0); Immature Granulocytes % 0.3 %; Immature Granulocytes Absolute 0.02 #; Lymphocytes # 1.6 10*3/uL (1.4-4.0); Lymphocytes % 23.4 % (21.3-54.2); Mean Corpuscular Hemoglobin 32 PG (27-34); Mean Corpuscular Volume 97.9 FL (87-102); Monocytes # 0.5 10*3/uL (0.11-0.8); Monocytes % 7.2 % (1.7-12.7); Neutrophils # 4.2 10*3/uL (1.4-7.4); Neutrophils % 62.2 % (38.7-73.9); Platelet Count 279 T/CUMM (130-400); Red Blood Count 3.28 MC/CUMM (3.8-5.5); Red Cell Distribution Width 13.6 % (9.3-17.3); White Blood Count 6.8 T/CUMM (4-12)
[2017-06-24] MEDS: ALBUTEROL/IPRATROPIUM 3 ML NEB RESP TX SCH ×4 (00:56→19:40)
[2017-06-24 01:03] LABS: Calcium 8.5 MG/DL (8.5-10.1); Osmolality,Calculated 282.8 MOS/KG (273-304); Potassium 4.1 MMOL/L (3.5-5.1); Risk Ratio 2.13
[2017-06-24 02:04] LABS: % Iron Saturation 50.3 % (18-50); Ferritin 121.6 ng/ml (8-252)
[2017-06-24 03:09] LABS: Vitamin B12 518 PG/ML (211-911)
[2017-06-24 03:16] LABS: Sedimentation Rate-Westergren 86 MM/HR (0-30)
[2017-06-24] MEDS: LEVOTHYROXINE 25 MCG TABLET PO SCH (06:20)
[2017-06-24 08:50] LABS: Hemoglobin A1 (Alkaline) 97.3 % (96.5-98.5); Hemoglobin A2 (Alkaline) 2.7 % (1.5-3.5)
[2017-06-24] MEDS: PYRIDOXINE 100 MG TABLET PO SCH (08:53)
[2017-06-24] MEDS: CLOPIDOGREL 75 MG TABLET PO SCH (08:54)
[2017-06-24] MEDS: clonazePAM 0.5 MG TABLET PO SCH ×2 (08:54→21:44)
[2017-06-24] MEDS: PANTOPRAZOLE 40 MG TABLET PO SCH (08:54)
[2017-06-24] MEDS: MONTELUKAST 10 MG TABLET PO SCH (08:54)
[2017-06-24] MEDS: guaiFENesin/DM ER 600-30 MG TABLET PO SCH ×2 (08:55→21:43)
[2017-06-24] MEDS: POTASSIUM CHLORIDE 20 MEQ TABLET PO SCH (08:55)
[2017-06-24] MEDS: FERROUS SULFATE 325 MG TABLET PO SCH ×2 (08:55→21:44)
[2017-06-24] MEDS: CARVEDILOL 6.25 MG TABLET PO SCH ×2 (08:55→16:11)
[2017-06-24] MEDS: ASPIRIN EC 81 MG TABLET PO SCH (08:55)
[2017-06-24] MEDS ORDERED: LEVOFLOXACIN INJ 750 MG in PREMIX 1 EACH IV SCH (16:00)
[2017-06-24] MEDS: DOXEPIN 25 MG CAPSULE PO SCH (21:44)
[2017-06-24] MEDS: ATORVASTATIN 40 MG TABLET PO SCH (21:44)
[2017-06-25] MEDS: ALBUTEROL/IPRATROPIUM 3 ML NEB RESP TX SCH ×3 (00:21→13:46)
[2017-06-25 05:43] LABS: Basophils % 0.5 % (0.0-0.8); Eosinophils # 0.4 10*3/uL (0.0-0.87); Eosinophils % 5.8 % (0.00-10.9); Hematocrit 31.8 VOL% (35.7-47.0); Hemoglobin 10.1 GM/DL (12.0-16.0); Immature Granulocytes % 0.5 %; Immature Granulocytes Absolute 0.03 #; Lymphocytes # 1.7 10*3/uL (1.4-4.0); Lymphocytes % 25.9 % (21.3-54.2); Mean Corpuscular HGB Conc 31.8 GM/DL (32-36); Mean Corpuscular Hemoglobin 31 PG (27-34); Mean Corpuscular Volume 98.5 FL (87-102); Mean Platelet Volume 9.2 FL (9.6-12.0); Monocytes # 0.5 10*3/uL (0.11-0.8); Monocytes % 8.2 % (1.7-12.7); Neutrophils # 3.9 10*3/uL (1.4-7.4); Neutrophils % 59.1 % (38.7-73.9); Platelet Count 270 T/CUMM (130-400); Red Blood Count 3.23 MC/CUMM (3.8-5.5); Red Cell Distribution Width 13.4 % (9.3-17.3); White Blood Count 6.6 T/CUMM (4-12)
[2017-06-25 06:01] LABS: Calcium 8.3 MG/DL (8.5-10.1); Potassium 3.9 MMOL/L (3.5-5.1)
[2017-06-25] MEDS: LEVOTHYROXINE 25 MCG TABLET PO SCH (07:12)
[2017-06-25] MEDS: guaiFENesin/DM ER 600-30 MG TABLET PO SCH (08:53)
[2017-06-25] MEDS: CLOPIDOGREL 75 MG TABLET PO SCH (08:54)
[2017-06-25] MEDS: PANTOPRAZOLE 40 MG TABLET PO SCH (08:54)
[2017-06-25] MEDS: MONTELUKAST 10 MG TABLET PO SCH (08:54)
[2017-06-25] MEDS: POTASSIUM CHLORIDE 20 MEQ TABLET PO SCH (08:54)
[2017-06-25] MEDS: clonazePAM 0.5 MG TABLET PO SCH (08:54)
[2017-06-25] MEDS: PYRIDOXINE 100 MG TABLET PO SCH (08:54)
[2017-06-25] MEDS: ASPIRIN EC 81 MG TABLET PO SCH (08:54)
[2017-06-25] MEDS: FERROUS SULFATE 325 MG TABLET PO SCH (08:55)
[2017-06-25] MEDS: CARVEDILOL 6.25 MG TABLET PO SCH (08:55)
[2017-06-25 12:13] VITALS: BP 96/54
== END 2017-06-25 14:35 | disposition home health service (06) | DRG 194 ==
LOC: N.ED 14:52 → N.EDINP 16:25 → N.2E 16:58
PROVIDERS: ADMIT Hospitalist; ATTEND Hospitalist

== ENCOUNTER 2017-12-23 11:21 | Inpatient (IN) ==
[2017-12-23 17:17] LABS: % Iron Saturation 12.6 % (18-50)
[2017-12-23 17:27] LABS: Folate 20.5 NG/ML (5.4-24.0)
[2017-12-23 20:24] LABS: Apearance,Urine CLEAR (Clear); Bilirubin,Urine Negative (Negative); Blood, Urine Negative (Negative); Glucose,Urine (UA) Negative (Negative); Ketones,Urine Negative (Negative); Nitrite,Urine Negative (Negative); Protein,Urine Negative; RBC,Urine <1 /HPF (0-4); Urine Color Straw (Yellow); Urine Specific Gravity 1.004 (1.001-1.035); Urine Urobilinogen < 2.0 EU/DL (0.2-1.0); WBC,Urine 1 /HPF (0-6)
[2017-12-24 07:06] LABS: Basophils # 0.1 10*3/uL (0.0-0.2); Basophils % 0.6 % (0.0-0.8); Eosinophils # 0.4 10*3/uL (0.0-0.87); Eosinophils % 4.2 % (0.00-10.9); Hematocrit 30.9 VOL% (35.7-47.0); Hemoglobin 9.9 GM/DL (12.0-16.0); Immature Granulocytes % 0.3 %; Immature Granulocytes Absolute 0.03 #; Lymphocytes # 1.5 10*3/uL (1.4-4.0); Lymphocytes % 17.3 % (21.3-54.2); Mean Corpuscular Hemoglobin 33 PG (27-34); Mean Corpuscular Volume 101.3 FL (87-102); Mean Platelet Volume 9.4 FL (9.6-12.0); Monocytes # 0.7 10*3/uL (0.11-0.8); Monocytes % 7.8 % (1.7-12.7); Neutrophils % 69.8 % (38.7-73.9); Platelet Count 221 T/CUMM (130-400); Red Blood Count 3.05 MC/CUMM (3.8-5.5); White Blood Count 8.6 T/CUMM (4-12)
[2017-12-24 07:18] LABS: INR 1.1; PT Patient Result 11.4 SECS; Partial Thromboplastin Time 26.6 SECS (0-40)
[2017-12-24 07:33] LABS: Potassium 3.8 MMOL/L (3.5-5.1)
[2017-12-26 10:39] LABS: Basophils % 0.3 % (0.0-0.8); Eosinophils # 0.4 10*3/uL (0.0-0.87); Eosinophils % 4.5 % (0.00-10.9); Hemoglobin 10.4 GM/DL (12.0-16.0); Immature Granulocytes % 0.3 %; Immature Granulocytes Absolute 0.03 #; Lymphocytes # 1.4 10*3/uL (1.4-4.0); Lymphocytes % 15.5 % (21.3-54.2); Mean Corpuscular HGB Conc 31.5 GM/DL (32-36); Mean Corpuscular Hemoglobin 33 PG (27-34); Mean Corpuscular Volume 104.4 FL (87-102); Mean Platelet Volume 9.4 FL (9.6-12.0); Monocytes # 0.6 10*3/uL (0.11-0.8); Monocytes % 6.7 % (1.7-12.7); Neutrophils # 6.6 10*3/uL (1.4-7.4); Neutrophils % 72.7 % (38.7-73.9); Platelet Count 233 T/CUMM (130-400); Red Blood Count 3.16 MC/CUMM (3.8-5.5); Red Cell Distribution Width 12.5 % (9.3-17.3)
[2017-12-26 11:22] LABS: Calcium 8.5 MG/DL (8.5-10.1); Osmolality,Calculated 277.3 MOS/KG (273-304); Potassium 3.8 MMOL/L (3.5-5.1)
[2017-12-27 05:44] LABS: Basophils % 0.4 % (0.0-0.8); Eosinophils # 0.5 10*3/uL (0.0-0.87); Eosinophils % 6.6 % (0.00-10.9); Hematocrit 28.7 VOL% (35.7-47.0); Hemoglobin 9.2 GM/DL (12.0-16.0); Immature Granulocytes % 0.8 %; Immature Granulocytes Absolute 0.06 #; Lymphocytes # 1.4 10*3/uL (1.4-4.0); Lymphocytes % 17.4 % (21.3-54.2); Mean Corpuscular HGB Conc 32.1 GM/DL (32-36); Mean Corpuscular Hemoglobin 32 PG (27-34); Mean Corpuscular Volume 101.1 FL (87-102); Mean Platelet Volume 9.8 FL (9.6-12.0); Monocytes # 0.7 10*3/uL (0.11-0.8); Monocytes % 8.9 % (1.7-12.7); Neutrophils # 5.3 10*3/uL (1.4-7.4); Neutrophils % 65.9 % (38.7-73.9); Platelet Count 232 T/CUMM (130-400); Red Blood Count 2.84 MC/CUMM (3.8-5.5); Red Cell Distribution Width 12.5 % (9.3-17.3)
[2017-12-27 06:05] LABS: Calcium 8.4 MG/DL (8.5-10.1); Osmolality,Calculated 278.3 MOS/KG (273-304)
[2017-12-27 08:00] VITALS: BP 109/54
== END 2017-12-27 12:10 | disposition home or self-care (01) | DRG 202 ==
LOC: N.5E 14:34
PROVIDERS: ADMIT Internal Medicine Pulmonary Disease; ATTEND Internal Medicine Pulmonary Disease

== ENCOUNTER 2020-04-22 11:42 | Inpatient (IN) ==
[2020-04-22 13:47] LABS: Calcium 8.2 MG/DL (8.5-10.1); Osmolality,Calculated 275.5 MOS/KG (273-304); Potassium 4.1 MMOL/L (3.5-5.1)
[2020-04-22 13:59] LABS: Bilirubin,Urine Negative (Negative); Blood, Urine Small mg/dL (Negative); Glucose,Urine (UA) Negative (Negative); Hyaline Casts,Urine 1 /LPF (0-3); Ketones,Urine Negative (Negative); Mucus,Urine Occasional /LPF (Occasional); Nitrite,Urine Positive (Negative); Protein,Urine Negative; RBC,Urine 2 /HPF (0-4); Squamous Epithelial Cell,Urine Occasional /HPF (0-10); Urine Appearance CLEAR (Clear); Urine Color Yellow (Yellow); Urine Specific Gravity 1.012 (1.001-1.035); Urine Urobilinogen < 2.0 EU/DL (0.2-1.0); WBC,Urine 87 /HPF (0-6)
[2020-04-22 14:50] LABS: Basophils % 0.3 % (0.0-0.8); Eosinophils # 0.2 10*3/uL (0.0-0.87); Eosinophils % 1.4 % (0.00-10.9); Hematocrit 33.9 VOL% (35.7-47.0); Hemoglobin 10.6 GM/DL (12.0-16.0); Immature Granulocytes % 0.5 %; Immature Granulocytes Absolute 0.07 #; Lymphocytes # 0.9 10*3/uL (1.4-4.0); Lymphocytes % 6.1 % (21.3-54.2); Mean Corpuscular HGB Conc 31.3 GM/DL (32-36); Mean Corpuscular Volume 102.1 FL (87-102); Mean Platelet Volume 9.1 FL (9.6-12.0); Monocytes % 4.1 % (1.7-12.7); Neutrophils % 87.6 % (38.7-73.9); Platelet Count 245 T/CUMM (130-400); Red Blood Count 3.32 MC/CUMM (3.8-5.5); Red Cell Distribution Width 12.2 % (9.3-17.3); White Blood Count 15.3 T/CUMM (4-12)
[2020-04-22] MEDS ORDERED: ONDANSETRON 4 MG/2 ML VIAL IV PRN (15:35)
[2020-04-22] MEDS ORDERED: DEXTROSE 50% 25 GM/50 ML VIAL IV PRN (15:35)
[2020-04-22] MEDS ORDERED: GLUCAGON 1 MG VIAL IM PRN (15:35)
[2020-04-22] MEDS ORDERED: BENZONATATE 100 MG CAPSULE PO PRN (17:10)
[2020-04-22] MEDS: SODIUM CHLORIDE 0.9% 1,000 ML IV SCH (17:32)
[2020-04-22] MEDS: cefTRIAXone 1,000 MG in SYRINGE 1 EACH IV SCH (17:35)
[2020-04-22] MEDS: carvediloL 6.25 MG TABLET PO SCH (21:47)
[2020-04-22] MEDS: clonazePAM 0.5 MG TABLET PO SCH (21:47)
[2020-04-22] MEDS: FERROUS SULFATE 325 MG TABLET PO SCH (21:47)
[2020-04-22] MEDS: ATORVASTATIN 40 MG TABLET PO SCH (21:47)
[2020-04-22] MEDS: DOXEPIN 25 MG CAPSULE PO SCH (21:47)
[2020-04-23 05:49] LABS: Basophils % 0.4 % (0.0-0.8); Eosinophils # 0.4 10*3/uL (0.0-0.87); Eosinophils % 3.6 % (0.00-10.9); Hematocrit 30.2 VOL% (35.7-47.0); Hemoglobin 9.4 GM/DL (12.0-16.0); Immature Granulocytes % 0.5 %; Immature Granulocytes Absolute 0.05 #; Lymphocytes # 0.8 10*3/uL (1.4-4.0); Lymphocytes % 8.2 % (21.3-54.2); Mean Corpuscular HGB Conc 31.1 GM/DL (32-36); Mean Corpuscular Volume 102.4 FL (87-102); Mean Platelet Volume 9.1 FL (9.6-12.0); Monocytes % 5.4 % (1.7-12.7); Neutrophils % 81.9 % (38.7-73.9); Platelet Count 212 T/CUMM (130-400); Red Blood Count 2.95 MC/CUMM (3.8-5.5)
[2020-04-23 06:02] LABS: White Blood Count 9.8 T/CUMM (4-12)
[2020-04-23 06:11] LABS: Risk Ratio 1.89; VLDL CHOLESTEROL 10.2 MG/DL
[2020-04-23 06:16] LABS: Calcium 8.1 MG/DL (8.5-10.1); Osmolality,Calculated 276.4 MOS/KG (273-304); Potassium 3.6 MMOL/L (3.5-5.1); Thyroid Stimulating Hormone 1.63 uIU/ml (0.358-3.74)
[2020-04-23] MEDS: LEVOTHYROXINE 25 MCG TABLET PO SCH (06:24)
[2020-04-23] MEDS: SODIUM CHLORIDE 0.9% 1,000 ML IV SCH ×2 (06:24→20:01)
[2020-04-23] MEDS ORDERED: POTASSIUM CHLORIDE 20 MEQ TABLET PO SCH (09:00)
[2020-04-23] MEDS ORDERED: PYRIDOXINE 50 MG TABLET PO SCH (09:00)
[2020-04-23] MEDS: clonazePAM 0.5 MG TABLET PO SCH ×2 (09:31→20:53)
[2020-04-23] MEDS: ASPIRIN EC 81 MG TABLET PO SCH (09:31)
[2020-04-23] MEDS: PYRIDOXINE 100 MG TABLET PO SCH (09:31)
[2020-04-23] MEDS: FERROUS SULFATE 325 MG TABLET PO SCH ×2 (09:32→20:53)
[2020-04-23] MEDS: carvediloL 6.25 MG TABLET PO SCH ×2 (09:32→20:52)
[2020-04-23] MEDS: POTASSIUM CHLORIDE 20 MEQ TABLET PO SCH (09:32)
[2020-04-23] MEDS: MONTELUKAST 10 MG TABLET PO SCH (09:32)
[2020-04-23] MEDS: MULTIVITAMIN (CENTRUM) TABLET PO SCH (09:32)
[2020-04-23] MEDS: PANTOPRAZOLE 40 MG TABLET PO SCH (09:32)
[2020-04-23] MEDS ORDERED: traMADol 50 MG TABLET PO PRN (10:16)
[2020-04-23] MEDS: cefTRIAXone 1,000 MG in SYRINGE 1 EACH IV SCH (16:34)
[2020-04-23] MEDS: DOXEPIN 25 MG CAPSULE PO SCH (20:53)
[2020-04-23] MEDS: ATORVASTATIN 40 MG TABLET PO SCH (20:53)
[2020-04-24 05:59] LABS: Basophils # 0.1 10*3/uL (0.0-0.2); Basophils % 0.5 % (0.0-0.8); Eosinophils # 0.7 10*3/uL (0.0-0.87); Eosinophils % 6.2 % (0.00-10.9); Hematocrit 26.7 VOL% (35.7-47.0); Hemoglobin 8.4 GM/DL (12.0-16.0); Immature Granulocytes % 0.5 %; Immature Granulocytes Absolute 0.06 #; Lymphocytes # 1.1 10*3/uL (1.4-4.0); Lymphocytes % 10.4 % (21.3-54.2); Mean Corpuscular HGB Conc 31.5 GM/DL (32-36); Mean Corpuscular Volume 101.9 FL (87-102); Mean Platelet Volume 9.2 FL (9.6-12.0); Monocytes % 6.5 % (1.7-12.7); Neutrophils % 75.9 % (38.7-73.9); Platelet Count 180 T/CUMM (130-400); Red Blood Count 2.62 MC/CUMM (3.8-5.5); Red Cell Distribution Width 11.9 % (9.3-17.3); White Blood Count 10.9 T/CUMM (4-12)
[2020-04-24] MEDS: LEVOTHYROXINE 25 MCG TABLET PO SCH (06:03)
[2020-04-24 06:29] LABS: Calcium 7.7 MG/DL (8.5-10.1); Osmolality,Calculated 273.7 MOS/KG (273-304); Potassium 3.7 MMOL/L (3.5-5.1)
[2020-04-24] MEDS: PANTOPRAZOLE 40 MG TABLET PO SCH (09:06)
[2020-04-24] MEDS: MULTIVITAMIN (CENTRUM) TABLET PO SCH (09:06)
[2020-04-24] MEDS: MONTELUKAST 10 MG TABLET PO SCH (09:06)
[2020-04-24] MEDS: FERROUS SULFATE 325 MG TABLET PO SCH ×2 (09:07→21:39)
[2020-04-24] MEDS: carvediloL 6.25 MG TABLET PO SCH ×2 (09:07→21:39)
[2020-04-24] MEDS: PYRIDOXINE 100 MG TABLET PO SCH (09:07)
[2020-04-24] MEDS: POTASSIUM CHLORIDE 20 MEQ TABLET PO SCH (09:07)
[2020-04-24] MEDS: ASPIRIN EC 81 MG TABLET PO SCH (09:07)
[2020-04-24] MEDS: clonazePAM 0.5 MG TABLET PO SCH ×2 (09:08→21:38)
[2020-04-24] MEDS: SODIUM CHLORIDE 0.9% 1,000 ML IV SCH (09:16)
[2020-04-24] MEDS: cefTRIAXone 1,000 MG in SYRINGE 1 EACH IV SCH (16:34)
[2020-04-24] MEDS: DOXEPIN 25 MG CAPSULE PO SCH (21:39)
[2020-04-24] MEDS: ATORVASTATIN 40 MG TABLET PO SCH (21:39)
[2020-04-25 05:41] LABS: Basophils % 0.4 % (0.0-0.8); Eosinophils # 0.6 10*3/uL (0.0-0.87); Eosinophils % 6.2 % (0.00-10.9); Hematocrit 27.5 VOL% (35.7-47.0); Hemoglobin 8.5 GM/DL (12.0-16.0); Immature Granulocytes % 0.4 %; Immature Granulocytes Absolute 0.04 #; Lymphocytes # 1.3 10*3/uL (1.4-4.0); Lymphocytes % 14.1 % (21.3-54.2); Mean Corpuscular HGB Conc 30.9 GM/DL (32-36); Mean Platelet Volume 9.1 FL (9.6-12.0); Neutrophils % 70.9 % (38.7-73.9); Platelet Count 184 T/CUMM (130-400); Red Blood Count 2.67 MC/CUMM (3.8-5.5)
[2020-04-25 05:53] LABS: Osmolality,Calculated 276.4 MOS/KG (273-304); Potassium 3.5 MMOL/L (3.5-5.1)
[2020-04-25] MEDS: LEVOTHYROXINE 25 MCG TABLET PO SCH (06:16)
[2020-04-25] MEDS: SODIUM CHLORIDE 0.9% 1,000 ML IV SCH (06:17)
[2020-04-25] MEDS: ASPIRIN EC 81 MG TABLET PO SCH (10:08)
[2020-04-25] MEDS: MULTIVITAMIN (CENTRUM) TABLET PO SCH (10:08)
[2020-04-25] MEDS: carvediloL 6.25 MG TABLET PO SCH ×2 (10:08→22:50)
[2020-04-25] MEDS: FERROUS SULFATE 325 MG TABLET PO SCH ×2 (10:08→22:50)
[2020-04-25] MEDS: POTASSIUM CHLORIDE 20 MEQ TABLET PO SCH (10:09)
[2020-04-25] MEDS: clonazePAM 0.5 MG TABLET PO SCH ×2 (10:09→22:50)
[2020-04-25] MEDS: PANTOPRAZOLE 40 MG TABLET PO SCH (10:09)
[2020-04-25] MEDS: PYRIDOXINE 100 MG TABLET PO SCH (10:09)
[2020-04-25] MEDS: MONTELUKAST 10 MG TABLET PO SCH (10:09)
[2020-04-25] MEDS: CHOLECALCIFEROL 1,000 UNIT TABLET PO SCH (14:45)
[2020-04-25] MEDS: cefTRIAXone 1,000 MG in SYRINGE 1 EACH IV SCH (17:42)
[2020-04-25] MEDS ORDERED: HALOPERIDOL 5 MG/ML AMP IM ONE (20:46)
[2020-04-25] MEDS: DOXEPIN 25 MG CAPSULE PO SCH (22:51)
[2020-04-25] MEDS: ATORVASTATIN 40 MG TABLET PO SCH (22:51)
[2020-04-26] MEDS ORDERED: HALOPERIDOL 5 MG/ML AMP IM ONE (00:36)
[2020-04-26 06:48] LABS: Basophils % 0.4 % (0.0-0.8); Eosinophils # 0.1 10*3/uL (0.0-0.87); Eosinophils % 1.1 % (0.00-10.9); Hematocrit 27.4 VOL% (35.7-47.0); Hemoglobin 8.9 GM/DL (12.0-16.0); Immature Granulocytes % 0.5 %; Immature Granulocytes Absolute 0.06 #; Lymphocytes # 0.8 10*3/uL (1.4-4.0); Lymphocytes % 7.6 % (21.3-54.2); Mean Corpuscular HGB Conc 32.5 GM/DL (32-36); Monocytes % 6.5 % (1.7-12.7); Neutrophils % 83.9 % (38.7-73.9); Platelet Count 201 T/CUMM (130-400); Red Blood Count 2.74 MC/CUMM (3.8-5.5); Red Cell Distribution Width 12.1 % (9.3-17.3)
[2020-04-26] MEDS: LEVOTHYROXINE 25 MCG TABLET PO SCH (07:02)
[2020-04-26 07:13] LABS: Calcium 8.3 MG/DL (8.5-10.1); Osmolality,Calculated 273.7 MOS/KG (273-304); Potassium 3.6 MMOL/L (3.5-5.1)
[2020-04-26] MEDS: POTASSIUM CHLORIDE 20 MEQ TABLET PO SCH (09:49)
[2020-04-26] MEDS: ASPIRIN EC 81 MG TABLET PO SCH (09:49)
[2020-04-26] MEDS: FERROUS SULFATE 325 MG TABLET PO SCH ×2 (09:49→20:24)
[2020-04-26] MEDS: clonazePAM 0.5 MG TABLET PO SCH ×2 (09:49→20:21)
[2020-04-26] MEDS: MULTIVITAMIN (CENTRUM) TABLET PO SCH (09:49)
[2020-04-26] MEDS: carvediloL 6.25 MG TABLET PO SCH ×2 (09:49→20:24)
[2020-04-26] MEDS: PANTOPRAZOLE 40 MG TABLET PO SCH (09:50)
[2020-04-26] MEDS: MONTELUKAST 10 MG TABLET PO SCH (09:50)
[2020-04-26] MEDS: PYRIDOXINE 100 MG TABLET PO SCH (09:50)
[2020-04-26] MEDS: CHOLECALCIFEROL 1,000 UNIT TABLET PO SCH (09:51)
[2020-04-26] MEDS ORDERED: TUBERCULIN SKIN TEST 0.1 ML SYRINGE INTRADERM ONE (13:52)
[2020-04-26] MEDS: cefTRIAXone 1,000 MG in SYRINGE 1 EACH IV SCH (17:41)
[2020-04-26] MEDS: DOXEPIN 25 MG CAPSULE PO SCH (20:23)
[2020-04-26] MEDS: ATORVASTATIN 40 MG TABLET PO SCH (20:24)
[2020-04-26] MEDS ORDERED: OLANZapine 2.5 MG TABLET PO ONE (23:00)
[2020-04-27 05:36] LABS: Basophils # 0.1 10*3/uL (0.0-0.2); Basophils % 0.5 % (0.0-0.8); Eosinophils # 0.3 10*3/uL (0.0-0.87); Eosinophils % 2.5 % (0.00-10.9); Hematocrit 27.5 VOL% (35.7-47.0); Hemoglobin 8.9 GM/DL (12.0-16.0); Immature Granulocytes % 0.5 %; Immature Granulocytes Absolute 0.07 #; Lymphocytes # 0.9 10*3/uL (1.4-4.0); Lymphocytes % 7.2 % (21.3-54.2); Mean Corpuscular HGB Conc 32.4 GM/DL (32-36); Mean Platelet Volume 9.3 FL (9.6-12.0); Monocytes % 6.6 % (1.7-12.7); Neutrophils % 82.7 % (38.7-73.9); Platelet Count 256 T/CUMM (130-400); Red Blood Count 2.75 MC/CUMM (3.8-5.5); Red Cell Distribution Width 12.2 % (9.3-17.3)
[2020-04-27 06:07] LABS: Calcium 8.5 MG/DL (8.5-10.1); Osmolality,Calculated 278.4 MOS/KG (273-304)
[2020-04-27] MEDS: LEVOTHYROXINE 25 MCG TABLET PO SCH (06:14)
[2020-04-27] MEDS: MULTIVITAMIN (CENTRUM) TABLET PO SCH (09:17)
[2020-04-27] MEDS: MONTELUKAST 10 MG TABLET PO SCH (09:17)
[2020-04-27] MEDS: carvediloL 6.25 MG TABLET PO SCH ×2 (09:17→21:22)
[2020-04-27] MEDS: FERROUS SULFATE 325 MG TABLET PO SCH ×2 (09:17→21:22)
[2020-04-27] MEDS: ASPIRIN EC 81 MG TABLET PO SCH (09:17)
[2020-04-27] MEDS: POTASSIUM CHLORIDE 20 MEQ TABLET PO SCH (09:17)
[2020-04-27] MEDS: clonazePAM 0.5 MG TABLET PO SCH ×2 (09:18→21:21)
[2020-04-27] MEDS: PYRIDOXINE 100 MG TABLET PO SCH (09:18)
[2020-04-27] MEDS: PANTOPRAZOLE 40 MG TABLET PO SCH (09:18)
[2020-04-27] MEDS: CHOLECALCIFEROL 1,000 UNIT TABLET PO SCH (09:18)
[2020-04-27] MEDS: cefTRIAXone 1,000 MG in SYRINGE 1 EACH IV SCH (16:31)
[2020-04-27] MEDS: DOXEPIN 25 MG CAPSULE PO SCH (21:21)
[2020-04-27] MEDS: ATORVASTATIN 40 MG TABLET PO SCH ×2 (21:22→21:28)
[2020-04-28] MEDS ORDERED: HALOPERIDOL 5 MG/ML AMP IM ONE (00:51)
[2020-04-28] MEDS: LEVOTHYROXINE 25 MCG TABLET PO SCH (06:39)
[2020-04-28 07:58] LABS: Basophils # 0.1 10*3/uL (0.0-0.2); Basophils % 0.5 % (0.0-0.8); Eosinophils # 0.4 10*3/uL (0.0-0.87); Eosinophils % 2.7 % (0.00-10.9); Hematocrit 28.4 VOL% (35.7-47.0); Hemoglobin 9.2 GM/DL (12.0-16.0); Immature Granulocytes % 0.6 %; Immature Granulocytes Absolute 0.08 #; Lymphocytes # 1.3 10*3/uL (1.4-4.0); Lymphocytes % 9.6 % (21.3-54.2); Mean Corpuscular HGB Conc 32.4 GM/DL (32-36); Mean Corpuscular Volume 99.6 FL (87-102); Monocytes % 6.7 % (1.7-12.7); Neutrophils % 79.9 % (38.7-73.9); Platelet Count 321 T/CUMM (130-400); Red Blood Count 2.85 MC/CUMM (3.8-5.5); Red Cell Distribution Width 12.5 % (9.3-17.3); White Blood Count 13.1 T/CUMM (4-12)
[2020-04-28] MEDS: ZIPRASIDONE 20 MG/1 ML VIAL IM PRN ×2 (08:11→15:59)
[2020-04-28 08:43] LABS: Calcium 8.6 MG/DL (8.5-10.1); Osmolality,Calculated 279.3 MOS/KG (273-304); Potassium 3.3 MMOL/L (3.5-5.1)
[2020-04-28] MEDS: clonazePAM 0.5 MG TABLET PO SCH ×2 (10:31→22:24)
[2020-04-28] MEDS: MULTIVITAMIN (CENTRUM) TABLET PO SCH (10:31)
[2020-04-28] MEDS: ASPIRIN EC 81 MG TABLET PO SCH (10:31)
[2020-04-28] MEDS: PYRIDOXINE 100 MG TABLET PO SCH (10:32)
[2020-04-28] MEDS: MONTELUKAST 10 MG TABLET PO SCH (10:32)
[2020-04-28] MEDS: POTASSIUM CHLORIDE 20 MEQ TABLET PO SCH (10:32)
[2020-04-28] MEDS: carvediloL 6.25 MG TABLET PO SCH ×2 (10:33→22:25)
[2020-04-28] MEDS: FERROUS SULFATE 325 MG TABLET PO SCH ×2 (10:33→22:25)
[2020-04-28] MEDS: PANTOPRAZOLE 40 MG TABLET PO SCH (10:33)
[2020-04-28] MEDS: CHOLECALCIFEROL 1,000 UNIT TABLET PO SCH (10:34)
[2020-04-28] MEDS: cefTRIAXone 1,000 MG in SYRINGE 1 EACH IV SCH (18:13)
[2020-04-28] MEDS: DOXEPIN 25 MG CAPSULE PO SCH (22:25)
[2020-04-28] MEDS: ATORVASTATIN 40 MG TABLET PO SCH (22:25)
[2020-04-29 05:43] LABS: Basophils # 0.1 10*3/uL (0.0-0.2); Basophils % 0.5 % (0.0-0.8); Eosinophils # 0.5 10*3/uL (0.0-0.87); Eosinophils % 4.4 % (0.00-10.9); Hematocrit 28.7 VOL% (35.7-47.0); Immature Granulocytes % 0.5 %; Immature Granulocytes Absolute 0.05 #; Mean Corpuscular HGB Conc 31.4 GM/DL (32-36); Mean Corpuscular Volume 101.8 FL (87-102); Mean Platelet Volume 8.8 FL (9.6-12.0); Monocytes % 7.4 % (1.7-12.7); Neutrophils % 77.2 % (38.7-73.9); Platelet Count 341 T/CUMM (130-400); Red Blood Count 2.82 MC/CUMM (3.8-5.5); Red Cell Distribution Width 12.5 % (9.3-17.3); White Blood Count 10.3 T/CUMM (4-12)
[2020-04-29] MEDS: LEVOTHYROXINE 25 MCG TABLET PO SCH (06:15)
[2020-04-29 06:48] LABS: Calcium 8.5 MG/DL (8.5-10.1); Osmolality,Calculated 275.4 MOS/KG (273-304)
[2020-04-29] MEDS: ASPIRIN EC 81 MG TABLET PO SCH (09:18)
[2020-04-29] MEDS: clonazePAM 0.5 MG TABLET PO SCH ×2 (09:18→22:45)
[2020-04-29] MEDS: CHOLECALCIFEROL 1,000 UNIT TABLET PO SCH (09:18)
[2020-04-29] MEDS: MULTIVITAMIN (CENTRUM) TABLET PO SCH (09:18)
[2020-04-29] MEDS: PYRIDOXINE 100 MG TABLET PO SCH (09:19)
[2020-04-29] MEDS: MONTELUKAST 10 MG TABLET PO SCH (09:19)
[2020-04-29] MEDS: carvediloL 6.25 MG TABLET PO SCH ×2 (09:19→22:45)
[2020-04-29] MEDS: PANTOPRAZOLE 40 MG TABLET PO SCH (09:19)
[2020-04-29] MEDS: POTASSIUM CHLORIDE 20 MEQ TABLET PO SCH (09:19)
[2020-04-29] MEDS: FERROUS SULFATE 325 MG TABLET PO SCH ×2 (09:19→22:44)
[2020-04-29] MEDS: DOXEPIN 25 MG CAPSULE PO SCH (22:43)
[2020-04-29] MEDS: ATORVASTATIN 40 MG TABLET PO SCH (22:46)
[2020-04-30 05:58] LABS: Basophils % 0.4 % (0.0-0.8); Eosinophils # 0.5 10*3/uL (0.0-0.87); Eosinophils % 4.9 % (0.00-10.9); Hematocrit 30.8 VOL% (35.7-47.0); Hemoglobin 9.6 GM/DL (12.0-16.0); Immature Granulocytes % 0.5 %; Immature Granulocytes Absolute 0.05 #; Lymphocytes # 1.4 10*3/uL (1.4-4.0); Lymphocytes % 13.1 % (21.3-54.2); Mean Corpuscular HGB Conc 31.2 GM/DL (32-36); Mean Corpuscular Volume 103.4 FL (87-102); Mean Platelet Volume 8.9 FL (9.6-12.0); Monocytes % 6.8 % (1.7-12.7); Neutrophils % 74.3 % (38.7-73.9); Platelet Count 455 T/CUMM (130-400); Red Blood Count 2.98 MC/CUMM (3.8-5.5); Red Cell Distribution Width 12.6 % (9.3-17.3); White Blood Count 10.3 T/CUMM (4-12)
[2020-04-30 06:23] LABS: Calcium 8.1 MG/DL (8.5-10.1); Osmolality,Calculated 274.7 MOS/KG (273-304); Potassium 3.1 MMOL/L (3.5-5.1)
[2020-04-30] MEDS: LEVOTHYROXINE 25 MCG TABLET PO SCH (06:53)
[2020-04-30] MEDS: POTASSIUM CHLORIDE 20 MEQ TABLET PO SCH (10:28)
[2020-04-30] MEDS: PANTOPRAZOLE 40 MG TABLET PO SCH (10:28)
[2020-04-30] MEDS: FERROUS SULFATE 325 MG TABLET PO SCH ×2 (10:28→21:05)
[2020-04-30] MEDS: carvediloL 6.25 MG TABLET PO SCH ×2 (10:29→21:05)
[2020-04-30] MEDS: MULTIVITAMIN (CENTRUM) TABLET PO SCH (10:29)
[2020-04-30] MEDS: MONTELUKAST 10 MG TABLET PO SCH (10:29)
[2020-04-30] MEDS: CHOLECALCIFEROL 1,000 UNIT TABLET PO SCH (10:29)
[2020-04-30] MEDS: PYRIDOXINE 100 MG TABLET PO SCH (10:30)
[2020-04-30] MEDS: ASPIRIN EC 81 MG TABLET PO SCH (10:30)
[2020-04-30] MEDS: DOXEPIN 25 MG CAPSULE PO SCH (21:05)
[2020-04-30] MEDS: SULFAMETHOX/TRIMETHOPRIM 800-160 MG TABLET PO SCH (21:05)
[2020-04-30] MEDS: ATORVASTATIN 40 MG TABLET PO SCH (21:06)
[2020-05-01] MEDS: LEVOTHYROXINE 25 MCG TABLET PO SCH (06:48)
[2020-05-01] MEDS: POTASSIUM CHLORIDE 20 MEQ TABLET PO SCH (11:11)
[2020-05-01] MEDS: SULFAMETHOX/TRIMETHOPRIM 800-160 MG TABLET PO SCH ×2 (11:11→21:14)
[2020-05-01] MEDS: ASPIRIN EC 81 MG TABLET PO SCH (11:11)
[2020-05-01] MEDS: MULTIVITAMIN (CENTRUM) TABLET PO SCH (11:11)
[2020-05-01] MEDS: CHOLECALCIFEROL 1,000 UNIT TABLET PO SCH (11:12)
[2020-05-01] MEDS: PANTOPRAZOLE 40 MG TABLET PO SCH (11:12)
[2020-05-01] MEDS: PYRIDOXINE 100 MG TABLET PO SCH (11:12)
[2020-05-01] MEDS: MONTELUKAST 10 MG TABLET PO SCH (11:12)
[2020-05-01] MEDS: carvediloL 6.25 MG TABLET PO SCH ×2 (11:12→21:14)
[2020-05-01] MEDS: FERROUS SULFATE 325 MG TABLET PO SCH ×2 (11:12→21:14)
[2020-05-01] MEDS: ATORVASTATIN 40 MG TABLET PO SCH (21:14)
[2020-05-01] MEDS: DOXEPIN 25 MG CAPSULE PO SCH (21:14)
[2020-05-02 05:46] LABS: Basophils # 0.1 10*3/uL (0.0-0.2); Basophils % 0.6 % (0.0-0.8); Eosinophils # 0.5 10*3/uL (0.0-0.87); Eosinophils % 4.1 % (0.00-10.9); Hematocrit 29.4 VOL% (35.7-47.0); Hemoglobin 9.2 GM/DL (12.0-16.0); Immature Granulocytes % 0.4 %; Immature Granulocytes Absolute 0.05 #; Lymphocytes # 1.4 10*3/uL (1.4-4.0); Lymphocytes % 11.7 % (21.3-54.2); Mean Corpuscular HGB Conc 31.3 GM/DL (32-36); Mean Corpuscular Volume 100.7 FL (87-102); Mean Platelet Volume 8.6 FL (9.6-12.0); Monocytes % 7.2 % (1.7-12.7); Platelet Count 466 T/CUMM (130-400); Red Blood Count 2.92 MC/CUMM (3.8-5.5); White Blood Count 12.1 T/CUMM (4-12)
[2020-05-02 06:08] LABS: Calcium 8.6 MG/DL (8.5-10.1); Osmolality,Calculated 275.5 MOS/KG (273-304)
[2020-05-02] MEDS: LEVOTHYROXINE 25 MCG TABLET PO SCH (07:20)
[2020-05-02] MEDS: SULFAMETHOX/TRIMETHOPRIM 800-160 MG TABLET PO SCH ×2 (10:23→21:24)
[2020-05-02] MEDS: MULTIVITAMIN (CENTRUM) TABLET PO SCH (10:24)
[2020-05-02] MEDS: CHOLECALCIFEROL 1,000 UNIT TABLET PO SCH (10:24)
[2020-05-02] MEDS: ASPIRIN EC 81 MG TABLET PO SCH ×2 (10:24→15:47)
[2020-05-02] MEDS: POTASSIUM CHLORIDE 20 MEQ TABLET PO SCH (10:24)
[2020-05-02] MEDS: PYRIDOXINE 100 MG TABLET PO SCH (10:24)
[2020-05-02] MEDS: FERROUS SULFATE 325 MG TABLET PO SCH ×2 (10:25→21:25)
[2020-05-02] MEDS: MONTELUKAST 10 MG TABLET PO SCH (10:25)
[2020-05-02] MEDS: carvediloL 6.25 MG TABLET PO SCH ×2 (10:25→21:23)
[2020-05-02] MEDS: PANTOPRAZOLE 40 MG TABLET PO SCH (10:25)
[2020-05-02] MEDS ORDERED: ROPIVACAINE 0.5% 30 ML VIAL ONE (11:28)
[2020-05-02] MEDS ORDERED: TISSUE ADHESIVE 1 EACH APPLICATOR TOP ONE (11:28)
[2020-05-02] MEDS ORDERED: fentaNYL 100 MCG/2 ML VIAL ONE (11:56)
[2020-05-02] MEDS ORDERED: LIDOCAINE 2% 5 ML VIAL ONE (11:58)
[2020-05-02] MEDS ORDERED: propofoL 200 MG/20 ML VIAL IV ONE (11:58)
[2020-05-02] MEDS ORDERED: ceFAZolin 1,000 MG VIAL ONE (12:17)
[2020-05-02] MEDS ORDERED: LACTATED RINGERS 1,000 ML IV ONE (12:50)
[2020-05-02] MEDS: ATORVASTATIN 40 MG TABLET PO SCH (21:23)
[2020-05-02] MEDS: DOXEPIN 25 MG CAPSULE PO SCH (21:24)
[2020-05-03 05:41] LABS: Basophils # 0.1 10*3/uL (0.0-0.2); Basophils % 0.4 % (0.0-0.8); Eosinophils # 0.3 10*3/uL (0.0-0.87); Eosinophils % 1.9 % (0.00-10.9); Hematocrit 29.5 VOL% (35.7-47.0); Hemoglobin 9.2 GM/DL (12.0-16.0); Immature Granulocytes % 0.6 %; Immature Granulocytes Absolute 0.09 #; Lymphocytes # 1.6 10*3/uL (1.4-4.0); Lymphocytes % 10.3 % (21.3-54.2); Mean Corpuscular HGB Conc 31.2 GM/DL (32-36); Mean Corpuscular Volume 103.1 FL (87-102); Mean Platelet Volume 8.6 FL (9.6-12.0); Monocytes % 7.1 % (1.7-12.7); Neutrophils % 79.7 % (38.7-73.9); Platelet Count 508 T/CUMM (130-400); Red Blood Count 2.86 MC/CUMM (3.8-5.5); White Blood Count 15.6 T/CUMM (4-12)
[2020-05-03 06:00] LABS: Calcium 8.6 MG/DL (8.5-10.1); Osmolality,Calculated 281.3 MOS/KG (273-304); Potassium 4.1 MMOL/L (3.5-5.1)
[2020-05-03] MEDS: LEVOTHYROXINE 25 MCG TABLET PO SCH (06:41)
[2020-05-03] MEDS: CHOLECALCIFEROL 1,000 UNIT TABLET PO SCH (08:59)
[2020-05-03] MEDS: carvediloL 6.25 MG TABLET PO SCH ×2 (09:00→21:52)
[2020-05-03] MEDS: FERROUS SULFATE 325 MG TABLET PO SCH ×2 (09:00→21:53)
[2020-05-03] MEDS: PANTOPRAZOLE 40 MG TABLET PO SCH (09:00)
[2020-05-03] MEDS: SULFAMETHOX/TRIMETHOPRIM 800-160 MG TABLET PO SCH ×2 (09:00→21:52)
[2020-05-03] MEDS: MULTIVITAMIN (CENTRUM) TABLET PO SCH (09:00)
[2020-05-03] MEDS: MONTELUKAST 10 MG TABLET PO SCH (09:00)
[2020-05-03] MEDS: PYRIDOXINE 100 MG TABLET PO SCH (09:00)
[2020-05-03] MEDS: ASPIRIN EC 81 MG TABLET PO SCH (09:00)
[2020-05-03] MEDS: POTASSIUM CHLORIDE 20 MEQ TABLET PO SCH (09:00)
[2020-05-03] MEDS: DOXEPIN 25 MG CAPSULE PO SCH (21:51)
[2020-05-03] MEDS: ATORVASTATIN 40 MG TABLET PO SCH (21:52)
[2020-05-04] MEDS: LEVOTHYROXINE 25 MCG TABLET PO SCH (06:07)
[2020-05-04 06:13] LABS: Basophils # 0.1 10*3/uL (0.0-0.2); Basophils % 0.5 % (0.0-0.8); Eosinophils # 0.8 10*3/uL (0.0-0.87); Eosinophils % 6.2 % (0.00-10.9); Hematocrit 30.9 VOL% (35.7-47.0); Hemoglobin 9.9 GM/DL (12.0-16.0); Immature Granulocytes % 0.5 %; Immature Granulocytes Absolute 0.06 #; Lymphocytes # 1.9 10*3/uL (1.4-4.0); Lymphocytes % 15.2 % (21.3-54.2); Mean Corpuscular Volume 100.7 FL (87-102); Mean Platelet Volume 8.4 FL (9.6-12.0); Monocytes % 7.5 % (1.7-12.7); Neutrophils % 70.1 % (38.7-73.9); Platelet Count 537 T/CUMM (130-400); Red Blood Count 3.07 MC/CUMM (3.8-5.5); Red Cell Distribution Width 13.2 % (9.3-17.3); White Blood Count 12.2 T/CUMM (4-12)
[2020-05-04 06:48] LABS: Calcium 8.6 MG/DL (8.5-10.1); Osmolality,Calculated 273.7 MOS/KG (273-304); Potassium 3.8 MMOL/L (3.5-5.1)
[2020-05-04] MEDS ORDERED: CLOPIDOGREL 75 MG TABLET PO SCH (09:00)
[2020-05-04] MEDS: CHOLECALCIFEROL 1,000 UNIT TABLET PO SCH (09:32)
[2020-05-04] MEDS: FERROUS SULFATE 325 MG TABLET PO SCH (09:32)
[2020-05-04] MEDS: POTASSIUM CHLORIDE 20 MEQ TABLET PO SCH (09:32)
[2020-05-04] MEDS: PYRIDOXINE 100 MG TABLET PO SCH (09:32)
[2020-05-04] MEDS: MONTELUKAST 10 MG TABLET PO SCH (09:32)
[2020-05-04] MEDS: ASPIRIN EC 81 MG TABLET PO SCH (09:32)
[2020-05-04] MEDS: MULTIVITAMIN (CENTRUM) TABLET PO SCH (09:33)
[2020-05-04] MEDS: carvediloL 6.25 MG TABLET PO SCH (09:33)
[2020-05-04] MEDS: PANTOPRAZOLE 40 MG TABLET PO SCH (09:33)
[2020-05-04] MEDS: SULFAMETHOX/TRIMETHOPRIM 800-160 MG TABLET PO SCH (09:33)
[2020-05-04 12:12] VITALS: BP 137/58
== END 2020-05-04 13:45 | disposition swing bed (61) | DRG 477 ==
LOC: EDUNIT# → N.ED 11:42 → N.EDINP 15:34 → SUATTDRO 15:34 → N.EDINP 16:23 → N.3E 16:29
PROVIDERS: ADMIT Internal Medicine; ATTEND Internal Medicine